=== PATIENT | male | born 1955 | race Caucasian/White ===

== ENCOUNTER 2019-03-19 09:16 | Outpatient (CLI) | payer BC, SELFPAY ==
--- NOTE | ~2019-03-19 | US_ITS ---
EXAMINATION: US venous doppler [facility] EXAM DATE: 03/19/2019 10:06 INDICATION: DVT follow-up. On blood thinners. TECHNIQUE: Multiple grayscale, color flow and Doppler images of the left lower extremity deep venous system obtained and reviewed. Comparison is made to prior examination from 07/17/2018. FINDINGS: LEFT SIDE Common femoral: -------- Normal. Profunda femoral: ------- Normal. Femoral: Occlusive thrombus. Popliteal: Nonocclusive thrombus. Posterior tibial: --------- Normal. Peroneal: Normal. Gastrocnemius: Nonocclusive thrombus. Soleus: Not visualized. Greater saphenous: ----- Normal. Lesser saphenous: ------ Not visualized. IMPRESSION: 1. Persistent left lower extremity DVT. Reviewed, dictated and finalized at location A. [facility]
== END 2019-03-19 09:17 | disposition home or self-care (01) ==
PROVIDERS: PCP Family Medicine; Visit Provider Physician Assistant
DX: I82.509 Chronic embolism and thrombosis of unspecified deep veins of unspecified lower extremity (principal)
CPT/HCPCS: 93971

== ENCOUNTER 2019-07-18 08:00 | Outpatient (CLI) | payer BC, SELFPAY ==
--- NOTE | ~2019-07-18 | XR_ITS ---
EXAMINATION: XR knee LT 3V DATE: 07/18/2019 08:25 INDICATION: Left knee pain. TECHNIQUE: 3 views of left knee were obtained. COMPARISON: None. FINDINGS: Bone alignment is normal. No fracture. There is moderate osteoarthritis of medial compartme nt and mild osteoarthritis of lateral and patellofemoral compartments. No knee joint effusion. A 7 mm focus of ossification posterior to the knee may be a loose body in a Hamilton's cyst. IMPRESSION: 1. Moderate left knee osteoarthritis. 2. Ossification posterior to the knee, likely a loose body in a Hamilton's cyst. Reviewed, dictated and finalized at location A.
--- NOTE | ~2019-07-18 | XR_ITS ---
EXAMINATION: XR knee RT 3V DATE: 07/18/2019 08:26 INDICATION: Right knee pain. TECHNIQUE: 3 views of right knee were obtained. COMPARISON: None. FINDINGS: Bone alignment is normal. No fracture. There is moderate osteoarthritis of medial compartme nt and mild osteoarthritis of lateral and patellofemoral compartments. No knee joint effusion. IMPRESSION: 1. Moderate right knee osteoarthritis. Reviewed, dictated and finalized at location A.
== END 2019-07-18 08:01 | disposition home or self-care (01) ==
PROVIDERS: PCP Family Medicine; Visit Provider Physician Assistant
DX: M25.561 Pain in right knee (principal); M25.562 Pain in left knee; M17.0 Bilateral primary osteoarthritis of knee
CPT/HCPCS: 73562

== ENCOUNTER 2019-07-24 11:32 | Outpatient (CLI) | payer BC, SELFPAY ==
--- NOTE | ~2019-07-24 | US_ITS ---
EXAMINATION:US venous doppler LE BI INDICATION:Right leg swelling. History of left lower extremity DVT. Patient on blood thinners. TECHNIQUE: Multiple grayscale, color flow and Doppler images of the lower extremity deep venous syste ms were obtained and reviewed. COMPARISON:No prior studies for comparison. FINDINGS: The right common femoral, superficial femoral and popliteal veins demonstrate normal respir atory variation, augmentation and compressibility. Color flow is also seen within the posterior tibi al, peroneal, greater saphenous and profunda veins. There is persistent deep venous thrombosis in the left femoral and popliteal veins, with associated reflux. The posterior tibial and peroneal veins on the left are not well visualized. IMPRESSION: 1: Persistent deep venous thrombosis of the left femoral and popliteal veins. Reviewed, dictated and finalized at location A.
== END 2019-07-24 11:33 | disposition home or self-care (01) ==
LOC: ANHIMG 11:34
PROVIDERS: PCP Family Medicine; Visit Provider Physician Assistant
DX: M79.604 Pain in right leg (principal); I82.412 Acute embolism and thrombosis of left femoral vein; I82.422 Acute embolism and thrombosis of left iliac vein
CPT/HCPCS: 93970

== ENCOUNTER 2019-11-09 16:57 | Emergency (ER) | payer BC, SELFPAY ==
--- NOTE | ~2019-11-09 | XR_ITS ---
EXAMINATION: XR foot RT min 3V DATE: 11/09/2019 18:14 INDICATION: Right foot pain, initial encounter TECHNIQUE: Dorsoplantar, lateral, and 2 oblique views of the right foot were obtained. COMPARISON: None. FINDINGS: There is an acute, traumatic fracture in the proximal half of the fifth proximal phalanx wh ich extends to the metatarsophalangeal joint. Soft tissue swelling surrounds the fracture. No additio nal acute osseous findings are evident. There is mild polyarticular osteoarthritis. IMPRESSION: 1. Acute fracture of the fifth proximal phalanx extending to the metatarsophalangeal joint. Reviewed, dictated and finalized at location A. IMPRESSION: 1. Acute fracture of the fifth proximal phalanx extending to the metatarsophala ngeal joint.
[2019-11-09 17:07] VITALS: BP 149/85; PULSE 79; RESP 18; TEMP 36.8; O2SAT 98
--- NOTE | 2019-11-09 18:06 | ED.WOUNDLAC ---
HPI - Wound/Laceration General Chief Complaint: Wound/Laceration Stated Complaint: feel off of a ladder, foot injury Time Seen by Provider: 11/09/19 17:12 Source: patient Mode of arrival: ambulatory Limitations: no limitations History of Present Illness HPI narrative: This is a 64-year-old male that presents to the emergency department for right fourth toe laceration sustained just prior to arrival. Reports he fell about 3 to 4 feet off of the ladder. Reports landing on his right side. He is unsure how he sustained the laceration. He is up-to-date on tetanus. He has no other complaints. Denies hitting his head, loss of consciousness, joint pain, numbness, or weakness. Related Data Allergies Allergy/AdvReac Type Severity Reaction Status Date / Time niacin Allergy Mild HIVES Verified 08/14/19 13:38 fish oil AdvReac Mild Nausea Verified 08/14/19 13:38 Review of Systems Review of Systems: Narrative: CONSTITUTIONAL: Denies fever EYES: Denies visual changes CARDIOVASCULAR: Denies chest pain RESPIRATORY: Denies dyspnea. GASTROINTESTINAL: Denies vomiting SKIN: Reports laceration MUSCULOSKELETAL: Denies back pain, joint pain, or myalgia. NEUROLOGIC: Denies headache, numbness, or weakness. All systems reviewed & are unremarkable except as noted in HPI and below PMFSH Past Medical History Medical History (Updated 11/09/19 @ 20:46 by Cammie Moon PA-C) Cellulitis of right lower extremity Edema of right lower extremity Hypertensive heart disease without CHF FILIPE (obstructive sleep apnea) Osteoarthritis of both knees Prediabetes Surgical History Surgical History (Updated 08/14/19 @ 13:39 by Ginger Dugan) History of elbow surgery Lt History of hernia surgery Family History Family History (Updated 08/14/19 @ 13:40 by Ginger Dugan) Mother Cancer of blood vessel Father No problems noted. Social History Social History (Updated 01/23/19 @ 10:41 by Myrtle Wilkins) Smoking packs per day: 2 Smoking cigarettes per day: 40.0 Years smoked: 22 Smoking pack-years: 44.00 Smoking status: Former smoker Tobacco type: cigarettes Second hand tobacco smoke exposure: No Alcohol intake: current Substance use: never Substance use type: does not use Gender identity (if verbalized by the patient): Male Exam Narrative: Exam Narrative: GENERAL: Well-appearing, well-nourished, and in no acute distress. HEAD: Normocephalic, atraumatic. EYES: PERRLA and EOMI. ENT: Nares clear, no rhinorrhea or epistaxis. Mucous membranes moist. Oropharynx without tonsillar hypertrophy exudate or other lesions. Bilateral TMs pearly rashid non-bulging NECK: Supple. No adenopathy or masses. No midline cervical spine tenderness CHEST: Clear to auscultation. No respiratory distress. No wheezes rales or rhonchi HEART: Regular rate and rhythm. No murmur heard. Normal peripheral pulses. BACK: No midline thoracic or lumbar spine tenderness EXTREMITIES: Normal range of motion, except decreased range of motion of the right fourth toe. No edema. SKIN: Warm, dry, no rash. 1.5cm linear laceration at the base of the right fourth toe into subcutaneous tissue NEURO: No focal deficits. Alert and oriented x3. PSYCH: Normal mood and affect Course Consultations Consultation #1: Spoke with Dr. Saldana about patient and work-up will follow-up in clinic. Date: 11/09/19 Time: 20:53 Vital Signs Vital signs: Vital Signs Temperature 98.3 F 11/09/19 17:07 Pulse Rate 79 11/09/19 17:07 Respiratory Rate 18 11/09/19 17:07 Blood Pressure 149/85 H 11/09/19 17:07 Pulse Oximetry 98 11/09/19 17:07 Temperature 98.3 F 11/09/19 17:07 Pulse Rate 79 11/09/19 17:07 Respiratory Rate 18 11/09/19 17:07 Blood Pressure 149/85 H 11/09/19 17:07 Pulse Oximetry 98 11/09/19 17:07 MDM - Wound/Laceration MDM Narrative Medical decision making narrative: Patient presents to the emergency department for right fourth
[2019-11-09 19:15] VITALS: BP 137/67; PULSE 81; RESP 18; O2SAT 100
[2019-11-09] MEDS: ceFAZolin SODIUM 1 GM VIAL IM (21:05)
--- NOTE | 2019-11-09 21:15 | PC.NURSE ---
Sterile water used for Ancef reconstitution.
[2019-11-09 21:21] VITALS: BP 140/76; PULSE 75; RESP 16; TEMP 36.7; O2SAT 100
== END 2019-11-09 21:25 | disposition home or self-care (01) ==
PROVIDERS: Emergency Provider Family Medicine; PCP Family Medicine
DX: S91.114A Laceration without foreign body of right lesser toe(s) without damage to nail, initial encounter (principal); S92.511A Displaced fracture of proximal phalanx of right lesser toe(s), initial encounter for closed fracture; G47.33 Obstructive sleep apnea (adult) (pediatric); I11.9 Hypertensive heart disease without heart failure; M17.0 Bilateral primary osteoarthritis of knee; R73.03 Prediabetes; Z87.891 Personal history of nicotine dependence; W11.XXXA Fall on and from ladder, initial encounter
CPT/HCPCS: 12001; 73630; 96372; 99284; J0690

== ENCOUNTER → 2020-04-24 01:17 | Outpatient (CLI) | payer BC, SELFPAY ==
[2020-04-24 18:54] LABS: SARS-CoV-2 RNA PCR Negative
== END ==
PROVIDERS: PCP Family Medicine; Visit Provider Internal Medicine Gastroenterology
DX: Z01.812 Encounter for preprocedural laboratory examination (principal); Z20.822 Contact with and (suspected) exposure to COVID-19
CPT/HCPCS: C9803; U0003; U0005

== ENCOUNTER 2020-04-27 01:08 | Day surgery (SDC) | payer BC, SELFPAY ==
[2020-04-13 15:22] VITALS: BMI 36.1
[2020-04-27 09:59] VITALS: BP 131/93; PULSE 78; RESP 16; TEMP 36.1; O2SAT 97; BMI 35.9
[2020-04-27] MEDS: LACTATED RINGERS 1,000 ML 150 ML IV CONT (10:01)
--- NOTE | 2020-04-27 10:41 | WPDANESEPPF ---
Anes - Initial Pre Proc Eval Procedure: Operation Date: 04/27/20 10:30 Proposed Procedures p Screening Colonoscopy - Alex Woodson MD Date/Time: 04/27/20 10:41 Surgeon: Alex Woodson MD Pre Op Diagnosis: Neoplasm Screening Patient Data Age: 64 Gender: M Height: 5 ft 8 in Weight: 107.1 kg Last Vital Signs Temp 96.9 F L 04/27/20 09:59 Pulse 78 04/27/20 09:59 Resp 16 04/27/20 09:59 BP 131/93 H 04/27/20 09:59 Pulse Ox 97 04/27/20 09:59 Allergies Allergy/AdvReac Type Severity Reaction Status Date / Time niacin Allergy Mild HIVES Verified 04/27/20 09:57 fish oil AdvReac Mild Nausea Verified 04/27/20 09:57 Home Medications Medication Instructions Recorded Confirmed Type atorvastatin 10 mg tablet 10 mg PO DAILY #90 tablet 11/26/19 04/27/20 Rx lisinopril 10 mg tablet 10 mg PO DAILY #90 tablet 03/04/20 04/27/20 Rx rivaroxaban 20 mg tablet 20 mg PO DAILY #90 tablet 03/04/20 04/27/20 Rx omeprazole 20 mg capsule,delayed 20 mg PO DAILY #90 cap 03/08/20 04/27/20 Rx release Patient hx anesthesia problems: none Family hx anesthesia problems: none PMFSH Past Medical History Medical History (Updated 03/08/20 @ 10:49 by Thais Rangel APN-C) Cellulitis of right lower extremity Edema of right lower extremity Hypertensive heart disease without CHF FILIPE (obstructive sleep apnea) Osteoarthritis of both knees Prediabetes Surgical History Surgical History (System 02/25/20 @ 09:54 by Emily Hollins) History of elbow surgery Lt History of hernia surgery Family History Family History (System 02/25/20 @ 09:54 by Emily Hollins) Mother Cancer of blood vessel Father No problems noted. Mother Family history of blood dyscrasia Grandparent Family history of heart disease in male family member before age 55 Social History Social History (Updated 03/04/20 @ 09:00 by Myrtle Wilkins) Smoking packs per day: 2 Smoking cigarettes per day: 40.0 Years smoked: 22 Smoking pack-years: 44.00 Smoking status: Never smoker Tobacco type: cigarettes Second hand tobacco smoke exposure: No Smoking end date: 02/12/91 Alcohol intake: never Substance use: never Substance use type: does not use Living arrangements: with family Gender identity (if verbalized by the patient): Male Spiritual care concerns: No Anes - Eval Final PreProcedure Day of Procedure 04/27/20 10:41 Patient weight: obese Heart: regular rate and rhythm Lungs: clear to auscultation Airway: Mallampati scale class III Neurological: alert and oriented Last oral intake: >/= 8 hours ASA classification: III Emergent: no Anesthetic plan: proceed Anesthesia type and monitoring: general GIVS and standard monitoring Informed Consent: The patient's anesthetic plan and its attendant risks and benefits were discussed with the patient/family/POA. Questions were solicited and answers provided to the satisfaction of the patient/family/POA.
--- NOTE | 2020-04-27 11:17 | PM.HPGS ---
History of Present Illness History of Present Illness Consent: Risks, benefits, and alternatives have been discussed and questions answered. Patient agrees to proceed with procedure. Chief complaint: Neoplasm Screening Narrative: Hans Cole is a 64 year old male with colon polyps 2017 Review of Systems Constitutional: Constitutional: Denies headache(s) and Denies weakness Eyes: Eyes: Denies blurry vision ENT: Reports Normal hearing present, Denies headache(s) and Denies neck pain Cardiovascular: Cardiovascular: Denies chest pain and Denies dyspnea Respiratory: Respiratory: Denies dyspnea Gastrointestinal: Gastrointestinal: Reports no additional gastrointestinal complaints Genitourinary: Genitourinary: Denies dysuria Musculoskeletal: Musculoskeletal: Denies neck pain Integumentary/Breasts: Skin/Breast: Denies dry skin Neurologic: Reports Normal hearing present, Denies headache(s) and Denies weakness Psychiatric: Psychiatric: Denies anxiety Endocrine: Endocrine: Denies change in body appearance Hematologic/Lymphatic: Hematologic/Lymphatic: Denies easy bleeding Allergic/Immunologic: Allergic/Immunologic: Denies urticaria PMFSH Past Medical History Medical History (Updated 04/27/20 @ 11:17 by Alex Woodson MD) Adenomatous colon polyp Cellulitis of right lower extremity Edema of right lower extremity Hypertensive heart disease without CHF FILIPE (obstructive sleep apnea) Osteoarthritis of both knees Prediabetes Surgical History Surgical History (System 02/25/20 @ 09:54 by Emily Hollins) History of elbow surgery Lt History of hernia surgery Family History Family History (System 02/25/20 @ 09:54 by Emily Hollins) Mother Cancer of blood vessel Father No problems noted. Mother Family history of blood dyscrasia Grandparent Family history of heart disease in male family member before age 55 Social History Social History (Updated 03/04/20 @ 09:00 by Myrtle Wilkins) Smoking packs per day: 2 Smoking cigarettes per day: 40.0 Years smoked: 22 Smoking pack-years: 44.00 Smoking status: Never smoker Tobacco type: cigarettes Second hand tobacco smoke exposure: No Smoking end date: 02/12/91 Alcohol intake: never Substance use: never Substance use type: does not use Living arrangements: with family Gender identity (if verbalized by the patient): Male Spiritual care concerns: No Meds Home Medications and Allergies Home Medications Medication Instructions Recorded Confirmed Type atorvastatin 10 mg tablet 10 mg PO DAILY #90 tablet 11/26/19 04/27/20 Rx lisinopril 10 mg tablet 10 mg PO DAILY #90 tablet 03/04/20 04/27/20 Rx rivaroxaban 20 mg tablet 20 mg PO DAILY #90 tablet 03/04/20 04/27/20 Rx omeprazole 20 mg capsule,delayed 20 mg PO DAILY #90 cap 03/08/20 04/27/20 Rx release Allergies Allergy/AdvReac Type Severity Reaction Status Date / Time niacin Allergy Mild HIVES Verified 04/27/20 09:57 fish oil AdvReac Mild Nausea Verified 04/27/20 09:57 Vital Signs Vital Signs - 24 hr 04/27/20 09:59 Temperature 96.9 F L Pulse Rate 78 Respiratory Rate 16 Blood Pressure 131/93 H Pulse Oximetry 97 Exam Const: General: comfortable and no acute distress HENMT: General nose exam: Normal nares present Eyes: General: appearance normal, both eyes and all related structures Neck: Neck: no JVD Resp: Auscultation: clear to auscultation bilaterally Cardio: Rate: regular rate Rhythm: regular rhythm GI: Inspection: non-distended GI Palp: Yes Soft to palpation Skin: General skin exam: normal color Neuro: General: gait normal Speech: normal speech Extrem: General: normal to inspection Psych: Mental Status: mental status grossly normal Assessment and Plan Assessment and plan (1) Adenomatous colon polyp: Code(s): D12.6 - Benign neoplasm of colon, unspecified Status: Acute Asse
[2020-04-27] MEDS: CENTRAL LINE FLUSH 10 ML XX (11:39)
[2020-04-27 11:43] VITALS: BP 120/71; PULSE 68; RESP 20; O2SAT 99
[2020-04-27 11:53] VITALS: BP 130/81; PULSE 66; RESP 18; O2SAT 98
[2020-04-27 12:03] VITALS: BP 127/83; PULSE 60; RESP 18; O2SAT 99
== END 2020-04-27 12:14 | disposition home or self-care (01) ==
PROVIDERS: PCP Family Medicine; Visit Provider Internal Medicine Gastroenterology
PROC: 0DJD8ZZ Inspection of Lower Intestinal Tract, Via Natural or Artificial Opening Endoscopic (ICD-10-PCS; CPT 45378; principal; 2020-04-27 10:30)
DX: Z12.11 Encounter for screening for malignant neoplasm of colon (principal); D12.0 Benign neoplasm of cecum; D12.3 Benign neoplasm of transverse colon; K63.5 Polyp of colon; K57.30 Diverticulosis of large intestine without perforation or abscess without bleeding; K64.4 Residual hemorrhoidal skin tags; I11.9 Hypertensive heart disease without heart failure; R73.03 Prediabetes; G47.33 Obstructive sleep apnea (adult) (pediatric); Z79.01 Long term (current) use of anticoagulants; Z87.891 Personal history of nicotine dependence; E66.9 Obesity, unspecified; Z68.35 Body mass index [BMI] 35.0-35.9, adult
CPT/HCPCS: 45381; 45385; 88305; J2001; J2704; J7120

== ENCOUNTER 2022-05-08 15:09 | Outpatient (CLI) | payer OTHER, SELFPAY ==
--- NOTE | ~2022-05-08 | XR_ITS ---
XR foot LT 2V DATE: 05/08/2022 15:26 INDICATION: Left foot pain. No injury. TECHNIQUE: 4 views COMPARISON: None FINDINGS: Mild plantar calcaneal enthesopathy. Old healed fracture of the proximal phalanx of the fifth toe. No recent fracture or dislocation, periosteal reaction or bone destruction. IMPRESSION: Mild plantar calcaneal enthesopathy Reviewed, dictated and finalized at location B.
== END 2022-05-08 15:10 | disposition home or self-care (01) ==
LOC: ANHIMG 15:13
PROVIDERS: PCP Family Medicine; Visit Provider Family Medicine
DX: M79.672 Pain in left foot (principal); M77.32 Calcaneal spur, left foot
CPT/HCPCS: 73620

== ENCOUNTER 2022-06-23 07:20 | Outpatient (CLI) | payer OTHER, SELFPAY ==
--- NOTE | ~2022-06-23 | US_ITS ---
Ultrasound of the Abdominal Aorta INDICATION: Smoking history, abdominal aortic aneurysm TECHNIQUE: Grayscale, color Doppler, and pulsed Doppler images of the aorta and common iliac arteries were obtained. COMPARISON: None. FINDINGS: Maximum vascular dimensions are as follows: Proximal aorta: 2.9 cm Mid aorta: 2.4 cm Distal aorta: 2.2 cm Right common iliac artery: 0.9 cm Left common iliac artery: 1.0 cm There is no evidence of abdominal aortic aneurysm. IMPRESSION: No abdominal aortic aneurysm seen. Reviewed, dictated and finalized at location M.
== END 2022-06-23 07:21 | disposition home or self-care (01) ==
PROVIDERS: PCP Family Medicine; Visit Provider Physician Assistant
DX: I71.40 Abdominal aortic aneurysm, without rupture, unspecified (principal); Z87.891 Personal history of nicotine dependence
CPT/HCPCS: 76706

== ENCOUNTER 2023-07-23 00:36 | Day surgery (SDC) | payer OTHER, SELFPAY ==
[2023-07-11 12:39] VITALS: BMI 33.7
--- NOTE | 2023-07-11 13:02 | PC.NURSE ---
Spoke with _PATIENT_ regarding medication _XARELTO. Pt. verbalizes understanding that the last dose of XARELTO is to be taken on 07/20/2023 and the Endoscopist will instruct them when to restart after the procedure.
[2023-07-23 06:18] VITALS: BP 142/95; PULSE 64; RESP 18; TEMP 36.1; O2SAT 100; BMI 34.7
[2023-07-23] MEDS: LACTATED RINGERS 1,000 ML 150 ML IV CONT (06:50)
--- NOTE | 2023-07-23 07:20 | WPDANESEPPF ---
Anes - Initial Pre Proc Eval Procedure: Operation Date: 07/23/23 07:30 Proposed Procedures p Colonoscopy - Alex Woodson MD Date/Time: 07/23/23 07:20 Surgeon: Alex Woodson MD Pre Op Diagnosis: Personal history colon polyps Patient Data Age: 67 Gender: M Height: 1.7 m Weight: 100.7 kg Last Vital Signs Temp 96.9 F L 07/23/23 06:18 Pulse 64 07/23/23 06:18 Resp 18 07/23/23 06:18 BP 142/95 H 07/23/23 06:18 Pulse Ox 100 07/23/23 06:18 O2 Del Method Room Air 07/23/23 06:18 Allergies Allergy/AdvReac Type Severity Reaction Status Date / Time niacin Allergy Mild HIVES Verified 07/23/23 06:27 fish oil AdvReac Mild Nausea Verified 07/23/23 06:27 Home Medications Medication Instructions Recorded Confirmed Type atorvastatin 10 mg tablet See Rx Instructions .Route 11/02/22 07/23/23 Rx .COMPLEX #90 tabs rivaroxaban 20 mg tablet (Xarelto) 20 mg PO DAILY #90 tabs 01/08/23 07/23/23 Rx omeprazole 20 mg capsule,delayed 20 mg PO DAILY #90 caps 02/06/23 07/23/23 Rx release lisinopril 10 mg tablet 10 mg PO DAILY #90 tabs 03/19/23 07/23/23 Rx Patient hx anesthesia problems: none Family hx anesthesia problems: none Results Review: All pre-operative results and documents have been reviewed as part of the pre-operative evaluation. [facility] Past Medical History Medical History Adenomatous colon polyp Cellulitis of right lower extremity Edema of right lower extremity Hypertensive heart disease without CHF FILIPE (obstructive sleep apnea) Osteoarthritis of both knees Prediabetes Surgical History Surgical History History of elbow surgery Lt History of hernia surgery Family History Family History Mother Cancer of blood vessel Father No problems noted. Mother Family history of blood dyscrasia Grandparent Family history of heart disease in male family member before age 55 Social History Social History Smoking packs per day: 2 Smoking cigarettes per day: 40.0 Years smoked: 22 Smoking pack-years: 44.00 Smoking status: Former smoker Tobacco type: cigarettes Second hand tobacco smoke exposure: No Smoking end date: 02/12/91 Alcohol intake: current Alcohol use details: occasionally Substance use: never Substance use type: does not use Living arrangements: with family Occupation/Education: occupation Gender identity (if verbalized by the patient): Male Sexual Orientation (if Verbalized by the Patient): Straight or Heterosexual Spiritual care concerns: No Anes - Eval Final PreProcedure Day of Procedure 07/23/23 07:20 Patient weight: normal Heart: regular rate and rhythm Lungs: clear to auscultation Airway: Mallampati scale class II Neurological: alert and oriented Last oral intake: >/= 8 hours ASA classification: III Emergent: no Anesthetic plan: proceed Anesthesia type and monitoring: general GIVS and standard monitoring Results Review: All pre-operative results and documents have been reviewed as part of the pre-operative evaluation. Informed Consent: The patient's anesthetic plan and its attendant risks and benefits were discussed with the patient/family/POA. Questions were solicited and answers provided to the satisfaction of the patient/family/POA.
--- NOTE | 2023-07-23 07:24 | PM.HPGS ---
History of Present Illness History of Present Illness Consent: Risks, benefits, and alternatives have been discussed and questions answered. Patient agrees to proceed with procedure. Chief complaint: Personal history colon polyps Narrative: Hans Cole is a 67 year old male with history of colon polyp Review of Systems Review of Systems: All systems reviewed & are unremarkable except as noted in HPI and below PMFSH Past Medical History Medical History Adenomatous colon polyp Cellulitis of right lower extremity Edema of right lower extremity Hypertensive heart disease without CHF FILIPE (obstructive sleep apnea) Osteoarthritis of both knees Prediabetes Surgical History Surgical History History of elbow surgery Lt History of hernia surgery Family History Family History Mother Cancer of blood vessel Father No problems noted. Mother Family history of blood dyscrasia Grandparent Family history of heart disease in male family member before age 55 Social History Social History Smoking packs per day: 2 Smoking cigarettes per day: 40.0 Years smoked: 22 Smoking pack-years: 44.00 Smoking status: Former smoker Tobacco type: cigarettes Second hand tobacco smoke exposure: No Smoking end date: 02/12/91 Alcohol intake: current Alcohol use details: occasionally Substance use: never Substance use type: does not use Living arrangements: with family Occupation/Education: occupation Gender identity (if verbalized by the patient): Male Sexual Orientation (if Verbalized by the Patient): Straight or Heterosexual Spiritual care concerns: No Meds Home Medications and Allergies Home Medications Medication Instructions Recorded Confirmed Type atorvastatin 10 mg tablet See Rx Instructions .Route 11/02/22 07/23/23 Rx .COMPLEX #90 tabs rivaroxaban 20 mg tablet (Xarelto) 20 mg PO DAILY #90 tabs 01/08/23 07/23/23 Rx omeprazole 20 mg capsule,delayed 20 mg PO DAILY #90 caps 02/06/23 07/23/23 Rx release lisinopril 10 mg tablet 10 mg PO DAILY #90 tabs 03/19/23 07/23/23 Rx Allergies Allergy/AdvReac Type Severity Reaction Status Date / Time niacin Allergy Mild HIVES Verified 07/23/23 06:27 fish oil AdvReac Mild Nausea Verified 07/23/23 06:27 Vital Signs Vital Signs - 24 hr 07/23/23 06:18 Temperature 96.9 F L Pulse Rate 64 Respiratory Rate 18 Blood Pressure 142/95 H Pulse Oximetry 100 Oxygen Delivery Room Air Exam Const: General: comfortable and no acute distress HENMT: Face/Nose/Sinus: Normal nares present Eyes: General: appearance normal, both eyes and all related structures Neck: Neck: no JVD Resp: Auscultation: clear to auscultation bilaterally Cardio: Rate: regular rate Rhythm: regular rhythm GI: Inspection: non-distended GI Palp: Yes Soft to palpation Skin: General skin exam: normal color Neuro: General: gait normal Speech: normal speech Extrem: General: normal to inspection Psych: Mental Status: mental status grossly normal Assessment and Plan Assessment and plan (1) Adenomatous colon polyp: Code(s): D12.6 - Benign neoplasm of colon, unspecified Status: Acute Assessment and Plan: colonoscopy
[2023-07-23 07:46] VITALS: BP 121/79; PULSE 61; RESP 18; O2SAT 99
[2023-07-23 07:56] VITALS: BP 123/76; PULSE 60; RESP 20; O2SAT 100
[2023-07-23 08:06] VITALS: BP 131/85; PULSE 57; RESP 16; O2SAT 100
== END 2023-07-23 08:13 | disposition home or self-care (01) ==
PROVIDERS: PCP Family Medicine; Visit Provider Internal Medicine Gastroenterology
PROC: 0DJD8ZZ Inspection of Lower Intestinal Tract, Via Natural or Artificial Opening Endoscopic (ICD-10-PCS; CPT 45378; principal; 2023-07-23 07:30)
DX: Z12.11 Encounter for screening for malignant neoplasm of colon (principal); D12.0 Benign neoplasm of cecum; D12.3 Benign neoplasm of transverse colon; K57.30 Diverticulosis of large intestine without perforation or abscess without bleeding; I11.9 Hypertensive heart disease without heart failure; G47.33 Obstructive sleep apnea (adult) (pediatric); Z79.01 Long term (current) use of anticoagulants; Z87.891 Personal history of nicotine dependence
CPT/HCPCS: 45385; 88305; J2704; J7120

== ENCOUNTER 2024-06-12 06:45 | Outpatient (CLI) | payer OTHER, SELFPAY ==
--- OUTSIDE RECORDS SUMMARY | 2024-06-12 06:52 | XMS_ITS | Clinical Summary ---
Author Organization [facility] [employer] Address [address] [place] [address] Care Team Providers Care Rail Gang Supervisor Name Role Phone Arturo Burns MD Primary Care Provider [phone] Source Comments [facility],non-owned Affiliates and Associated Physician Practices is amultiple site organization consisting of ambulatory clinics and hospital sitesin [place], [place] and [place]. This disclosure is being madepursuant to the Care Everywhere program and may not contain all information available regarding this patient. Last updated 17.[facility] [employer] Allergies Active Allergy Reactions Criticality Noted Date Comments Fish Oil Nausea and/or Vomiting 06/25/2017 Niacin Rash Medium 06/25/2017 Medications * Be aware that medications may not be up to date on this document. Alwaysverify current medications with the patient. lisinopril (PRINIVIL; ZESTRIL) 10 MG tablet Take 10 mg by mouth once daily Active rivaroxaban (XARELTO) 20 MG tablet Take 20 mg by mouth daily with food Active atorvastatin (LIPITOR) 10 MG tablet Take 10 mg by mouth at bedtime Active Active Problems Problem Noted Date Diagnosed Date Dizziness 06/25/2017 Social History Tobacco Use Types Packs/Day Years Used Date Smoking Tobacco: Former Cigarettes Q uit: 1991 Smokeless Tobacco: Never Alcohol Use Standard Drinks/Week Comments Yes 0 (1 standard drink = 0.6 oz pur e alcohol) Sex and Gender Information Value Date Recorded Sex Assigned at Not on file 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 Gender Identity Not on file Sexual Orientation Not on file Last Filed Vital Signs Vital Sign Reading Time Taken Comments Blood Pressure 118/78 06/26/2017 7:38 AM CDT Pulse 85 06/26/2017 7:38 AM CDT Temperature 37.6 C (99.7 F) 06/26/2017 7:38 AM CDT Respiratory Rate 18 06/26/2017 7:38 AM CDT Oxygen Saturation 94% 06/26/2017 7:38 AM CDT Inhaled Oxygen Concentration - - Weight 117 kg (257 lb 15 oz) 06/25/2017 1:46 AM CDT Height 170.2 cm (5' 7 ) 06/25/2017 1:46 AM CDT Body Mass Index 40.4 06/25/2017 1:46 AM CDT Plan of Treatment Health Maintenance Due Date Last Done Comments COLOGUARD (AGES 45-75) - COL ON CA SCREENING 1953 COLON MONITORING 1953 COLONOSCOPY - COLON CA SCREENING 1953 CT COLONOGRAPHY - COLON CA SCREENING 1953 Colorectal Cancer Screening 1953 FIT - COLON CA SCREENING 1953 FLEX SIG - COLON CA SCREENING 1953 MEDICARE AWV 12 MONTHS 1953 HEPATITIS C SCREENING 09/19/1971 DTAP/TDAP/TD VACCINES (1 - Tdap) 1972 PNEUMOCOCCAL VACCINE 50+ (1 of 1 - PCV) 09/24/2003 ZOSTER VACCINE (1 of 2) 09/24/2003 Respiratory Syncytial Virus (RSV) Vaccine Pt: or over 60 yrs (1 - Risk 60-74 years 1-dose series) 2013 AAA SCREENING 2018 COVID-19 VACCINE (1 - 2023-2 5 season) 2023 DEPRESSION SCREENING 02/13/2024 INFLUENZA VACCINE (Season Ended) 2024 HEPATITIS B VACCINE Aged Out No longe r eligible based on patient's age to complete this topic HIB VACCINE Aged Out No longer eligi ble based on patient's age to complete this topic HPV VACCINE Aged Out No longer eligi ble based on patient's age to complete this topic MENINGOCOCCAL (Group B) VACC INE SHARED DECISION-MAKING Aged Out No longer eligibl e based on patient's age to complete this topic MENINGOCOCCAL GROUPS A/C/Y/W VACCINE Aged Out No longer eligible b ased on patient's age to complete this topic Insurance [employer] * Guarantor: PATT SCHNEIDER Account Type Relation to Patient Date of Phone Billing Address Personal/Family [address] [place] [address] [employer] * Guarantor: PATT SCHNEIDER Account Type Relation to Patient Date of Phone Billing Address Personal/Family [address] [place] [address] * Guarantor: PATT SCHNEIDER Account Type Relation to Patient Date of Phone Billing Address Personal/Family [address] [place] [address] Advance Directives * Full Code (Latest Code Status on File) Date Activated Date Inactivated Comments 06/25/2017 5:41 PM 06/26/2017 12:49 PM Care Teams Rail Gang Supervisor Relationship Specialty Start Date End Date Arturo Burns MD [address] [place] [address] PCP - General Family Medicine 06/25/17
--- NOTE | 2024-06-12 08:20 | ECG_ITS ---
Test Date: 2024-06-12 08:33:46 Measurements Intervals [place] Rate: 67 P: 23 DC: 148 QRS: -14 QRSD: 93 T: 1 QT: 371 QTc: 393 Interpretive Statements SINUS RHYTHM NONSPECIFIC T-WAVE ABNORMALITY No previous ECG available for comparison Electronically Signed On 06-13-2024 18:57:38 CDT by Harsh Briones
[2024-06-12 08:42] LABS: Basophils Absolute Auto 0.1 K/mm3 (0.0-0.1); Basophils Percent Auto 1.1 % (0.2-1.2); Eosinophils Absolute Auto 0.4 K/mm3 (0-0.3); Eosinophils Percent Auto 5.3 % (0-4.4); Hematocrit 46.6 % (42.0-52.0); Hemoglobin 14.3 g/dL (14.0-18.0); Immature Granulocyte Absolute 0.02 K/mm3 (0.00-0.031); Immature Granulocyte Percent A 0.2 % (0-0.5); Lymphocytes Absolute Auto 1.39 K/mm3 (0.9-3.2); Mean Corpuscular HGB Conc 30.7 g/dl (32-36); Mean Corpuscular Hemoglobin 29.9 pg (26-34); Mean Corpuscular Volume 97.3 fl (80-100); Mean Platelet Volume 8.6 fl (7.4-10.4); Monocytes Absolute Auto 0.6 K/mm3 (0.1-0.6); Monocytes Percent Auto 7.6 % (2.6-8.5); Neutrophils Absolute Auto 5.6 K/mm3 (1.3-6.7); Neutrophils Percent Auto 68.8 % (45.5-73.1); Platelet Count Result 363 k/mm3 (150-375); Red Blood Count 4.79 M/mm3 (4.6-6.20); White Blood Count 8.2 K/mm3 (4.5-10.0)
[2024-06-12 08:51] LABS: Albumin Level 4.2 g/dL (3.5-5.1); Estimated Glomerular Filt Rate > 60; Glucose 120 mg/dL (65-110)
[2024-06-12 09:05] LABS: Urine Cotinine NEGATIVE
[2024-06-12 09:39] LABS: Hemoglobin A1C 5.6 % (<5.7)
[2024-06-12 09:54] LABS: MRSA (PCR) NOT DETECTED (NOT DETECTE)
== END 2024-06-12 06:46 | disposition home or self-care (01) ==
LOC: ANHSURGERY 06:50
PROVIDERS: PCP Family Medicine; Visit Provider Orthopaedic Surgery
DX: Z01.818 Encounter for other preprocedural examination (principal); M17.12 Unilateral primary osteoarthritis, left knee; R94.31 Abnormal electrocardiogram [ECG] [EKG]
CPT/HCPCS: 80307; 82040; 82565; 82947; 83036; 85025; 86850; 86900; 86901; 87641; 93005

== ENCOUNTER 2024-06-23 00:32 | Day surgery (SDC) | payer OTHER, SELFPAY ==
[2024-06-12 07:43] VITALS: BP 151/83; PULSE 68; RESP 16; TEMP 36.7; O2SAT 100; BMI 36.7
--- NOTE | 2024-06-12 07:50 | PC.NURSE ---
Report to the Outpatient Waiting Room, entrance under the green pavilion located off [facility], at time ___6:00AM____ on date ____06/23/24___. Planned Procedure Time: ____7:30AM____.? Time changes happen often and if your time is changed the preop area will call you the afternoon before. - You and your visitor will be asked to self-screen and do not enter if you have any COVID symptoms. Please call surgeon if you need to reschedule. - A mask is optional within the hospital at this time. Patients may have clear liquids (water, carbonated beverages, clear teas, apple juice) until 3 hours prior to surgery (4:30AM) with a maximum of 20 ounces. - No food from midnight until time of surgery and no smoking, or chewing tobacco (or any form of nicotine). No chewing gum, candy or mints. Take only the following medications with a SIP of water on the morning of surgery: NONE DO NOT STOP ANY OF YOUR OTHER PRESCRIPTION MEDICATIONS PRIOR TO SURGERY EXCEPT THE FOLLOWING Hold all vitamins and supplements for 3 days per anesthesiologist. Medications to discontinue per physician ____HOLD XERALTO 3 DAYS PRE-OP PER DR HERBERT Date to take last dose 06/19/24 Please no make-up, nail congolese, hairspray, perfume, deodorant, or body powder the day of surgery.? No jewelry (including any body piercings) or valuables the day of surgery, leave them at home.? Please take a shower or bath the night before, or the morning of, surgery with an antibacterial soap.? Wear comfortable, loose fitting clothing.? - Jewelry must be removed prior to entering the operating room.? Rings and piercings that are not removed may be cut off. - The hospital will not accept responsibility for valuables.? - Please leave all valuables, including medications, at home the day of surgery. If you are going home after surgery, a licensed otr owner operator truck driver must drive you home.? - NO public transportation without another adult if you receive anesthesia. - We recommend that an adult stay with you for 24 hours following discharge. - We also recommend that you do not drive, make important decision, drink alcoholic beverages, or take any drugs that were not prescribed by your health care provider for at least 24 hours after your discharge time. Follow any additional instructions given to you from your surgeon. Telephone instructions given to ____PATIENT and asked if any additional questions and then verbalized understanding. Patient advised to call surgeon office or pre surgery nurse liaison [phone] if any additional questions.
--- NOTE | 2024-06-19 07:12 | PM.IMHP ---
H&P: HPI History of Present Illness Date/Time: 06/19/24 07:12 Chief Complaint: Patient has knee pain left. He has significant osteoarthritis. He has failed conservative treatment. He would like to consider surgical intervention at this time. Review of Systems Musculoskeletal: Musculoskeletal: Reports arthralgias, Reports joint swelling and Reports stiffness Neurologic: Reports abnormal gait [facility] Past Medical History Medical History Adenomatous colon polyp Osteoarthritis of both knees Cellulitis of right lower extremity Edema of right lower extremity Hypertensive heart disease without CHF FILIPE (obstructive sleep apnea) Prediabetes Surgical History Surgical History History of elbow surgery Lt History of hernia surgery Family History Family History Mother Cancer of blood vessel Father No problems noted. Mother Family history of blood dyscrasia Grandparent Family history of heart disease in male family member before age 55 Social History Social History Smoking packs per day: 1 Smoking cigarettes per day: 20.0 Years smoked: 19 Smoking pack-years: 19.00 Smoking status: Former smoker Tobacco type: cigarettes Second hand tobacco smoke exposure: No Smoking end date: 08/12/90 Alcohol intake: current Alcohol use details: occasionally Substance use: never Substance use type: does not use Do You Feel Safe in your Home?: Yes Lack of Transportation: No Lack of Food: Never True Current Housing: I Have Housing Concerned About Future Housing: No Difficulty Paying Gas/Electric Bills: No Difficulty Paying for Meds: No Currently Unemployed: No Education: High School Diploma/GED Difficulty w/ Childcare or Family Care: No Living arrangements: with family Additional living arrangements comments: Occupation/Education: occupation Gender identity (if verbalized by the patient): Male Sexual Orientation (if Verbalized by the Patient): Straight or Heterosexual Spiritual care concerns: No Meds Home Medications and Allergies Home Medications ?Medication ?Instructions ?Recorded ?Confirmed ?Type omeprazole 20 mg capsule,delayed 20 mg PO DAILY #90 caps 10/31/23 06/12/24 Rx release lisinopril 10 mg tablet 10 mg PO DAILY #90 tabs 12/09/23 06/12/24 Rx atorvastatin 10 mg tablet See Rx Instructions .Route 05/06/24 06/12/24 Rx .COMPLEX #90 tabs rivaroxaban 20 mg tablet (Xarelto) See Rx Instructions .Route 06/09/24 06/12/24 Rx .COMPLEX #90 tabs Allergies Allergy/AdvReac Type Severity Reaction Status Date / Time niacin Allergy Mild HIVES Verified 06/12/24 07:41 fish oil AdvReac Mild Nausea Verified 06/12/24 07:41 Exam Narrative: On exam he has motion of his knee from about 5-105 degrees. He has varus deformity. He has grinding crepitus and pain with manipulation. Neurologically appears to be grossly intact. He walks with an antalgic gait. Eyes: General: appearance normal, both eyes and all related structures Neck: Neck: supple Resp: Effort & Inspection: normal respiratory effort Cardio: Rate: regular rate Rhythm: regular rhythm Assessment and Plan Assessment and plan (1) Osteoarthritis of both knees: Code(s): M17.0 - Bilateral primary osteoarthritis of knee Status: Acute Assessment and Plan: Patient has osteoarthritis left knee. He has failed conservative treatment like to consider knee replacement surgery I discussed risks, benefits, limitations, and alternatives with the patient in detail. Will proceed per his request he understands and agrees.
[2024-06-23] VITALS (14 sets, daily range): BP systolic 95–148; BP diastolic 57–84; PULSE 61–79; RESP 10–18; TEMP 36.2–37.1; O2SAT 92–100
--- NOTE | ~2024-06-23 | XR_ITS ---
EXAMINATION: [id number] DATE: 06/23/2024 09:50 INDICATION: Postoperative evaluation following left total knee arthroplasty. TECHNIQUE: Anteroposterior and lateral views of the left knee were obtained. COMPARISON: None. FINDINGS: Left total knee arthroplasty with patellar resurfacing appears well seated and in near anatomic align ment. There is suggestion of some extravasated cement at the posterolateral margin of the tibial comp onent. No fractures identified. Skin laura and expected postoperative subcutaneous, intramedullary and intra-articular gas. IMPRESSION: 1. Left total knee arthroplasty, negative for postoperative purposes. Reviewed, dictated and finalized at location A.
--- OUTSIDE RECORDS SUMMARY | 2024-06-23 00:34 | XMS_ITS | Clinical Summary ---
Author Organization [facility] [employer] Address [address] [place] [address] Care Team Providers Care Blood Bank Order Control Clerk Name Role Phone Arturo Burns MD Primary Care Provider [phone] Source Comments [facility],non-owned Affiliates and Associated Physician Practices is amultiple site organization consisting of ambulatory clinics and hospital sitesin [place], [place], [place] and [place]. This disclosure is being madepursuant to the Care Everywhere program and may not contain all information available regarding this patient. 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 Gender Identity Not on file Sexual Orientation [...] Billing Address Personal/Family [address] [place] [address] [employer] * Guarantor: PATT SCHNEIDER Account Type Relation to Patient Date of Phone Billing Address Personal/Family [address] [place] [address] * Guarantor: PATT SCHNEIDER Account Type Relation to Patient Date of Phone Billing Address Personal/Family [address] [place] [address] Advance Directives * Full Code (Latest Code Status on File) Date Activated Date Inactivated Comments 06/25/2017 5:41 PM 06/26/2017 12:49 PM Care Teams Blood Bank Order Control Clerk Relationship Specialty Start Date End Date Arturo Burns MD [address] [place] [address] PCP - General Family Medicine 06/25/17
--- NOTE | 2024-06-23 06:53 | WPDHPUPDATE1 ---
History and Physical Update Update Date/Time: 06/23/24 06:53 History and Physical has been reviewed, including an updated exam of the patient. There are NO changes in the patient's condition. Risks, benefits, and alternatives have been discussed and questions answered. Patient agrees to proceed with procedure.
[2024-06-23] MEDS: VANCOMYCIN 1,500 MG/NS 500 ML 1,500 MG/500 ML BAG 250 MG IVPB (07:00)
[2024-06-23] MEDS: ACETAMINOPHEN 500 MG TABLET 1000 MG PO (07:00)
[2024-06-23] MEDS: LACTATED RINGERS 1,000 ML 30 ML IV CONT ×2 (07:00→09:35)
[2024-06-23] MEDS: TRANEXAMIC ACID 1,000MG/ISO100 1,000 MG/100 ML BAG 200 MG IVPB (07:00)
--- NOTE | 2024-06-23 07:12 | WPDANESEPPF ---
Anes - Initial Pre Proc Eval Procedure: Operation Date: 06/23/24 07:30 Proposed Procedures p Left Total Knee Arthroplasty - Juan Prince MD Date/Time: 06/23/24 07:12 Surgeon: Juan Prince MD Pre Op Diagnosis: oa left knee Patient Data Age: 68 Gender: M Height: 1.7 m Weight: 106.4 kg Last Vital Signs Temp 98.0 F 06/12/24 07:43 Pulse 68 06/12/24 07:43 Resp 16 06/12/24 07:43 BP 151/83 H 06/12/24 07:43 Pulse Ox 100 06/12/24 07:43 O2 Del Method Room Air 06/12/24 07:43 Allergies Allergy/AdvReac Type Severity Reaction Status Date / Time niacin Allergy Mild HIVES Verified 06/12/24 07:41 fish oil AdvReac Mild Nausea Verified 06/12/24 07:41 Home Medications ?Medication ?Instructions ?Recorded ?Confirmed ?Type omeprazole 20 mg capsule,delayed 20 mg PO DAILY #90 caps 10/31/23 06/12/24 Rx release lisinopril 10 mg tablet 10 mg PO DAILY #90 tabs 12/09/23 06/12/24 Rx atorvastatin 10 mg tablet See Rx Instructions .Route 05/06/24 06/12/24 Rx .COMPLEX #90 tabs rivaroxaban 20 mg tablet (Xarelto) See Rx Instructions .Route 06/09/24 06/12/24 Rx .COMPLEX #90 tabs Patient hx anesthesia problems: none Family hx anesthesia problems: none Results Review: All pre-operative results and documents have been reviewed as part of the pre-operative evaluation. [facility] Past Medical History Medical History Adenomatous colon polyp Osteoarthritis of both knees Cellulitis of right lower extremity Edema of right lower extremity Hypertensive heart disease without CHF FILIPE (obstructive sleep apnea) Prediabetes Surgical History Surgical History History of elbow surgery Lt History of hernia surgery Family History Family History Mother Cancer of blood vessel Father No problems noted. Mother Family history of blood dyscrasia Grandparent Family history of heart disease in male family member before age 55 Social History Social History Smoking packs per day: 1 Smoking cigarettes per day: 20.0 Years smoked: 19 Smoking pack-years: 19.00 Smoking status: Former smoker Tobacco type: cigarettes Second hand tobacco smoke exposure: No Smoking end date: 08/12/90 Alcohol intake: current Alcohol use details: occasionally Substance use: never Substance use type: does not use Do You Feel Safe in your Home?: Yes Lack of Transportation: No Lack of Food: Never True Current Housing: I Have Housing Concerned About Future Housing: No Difficulty Paying Gas/Electric Bills: No Difficulty Paying for Meds: No Currently Unemployed: No Education: High School Diploma/GED Difficulty w/ Childcare or Family Care: No Living arrangements: with family Additional living arrangements comments: Occupation/Education: occupation Gender identity (if verbalized by the patient): Male Sexual Orientation (if Verbalized by the Patient): Straight or Heterosexual Spiritual care concerns: No Anes - Eval Final PreProcedure Day of Procedure 06/23/24 07:12 Patient weight: obese Lungs: normal air movement Airway: Mallampati scale class II Neurological: alert and oriented Last oral intake: >/= 8 hours ASA classification: III Emergent: no Anesthetic plan: proceed Anesthesia type and monitoring: general ETT and standard monitoring Results Review: All pre-operative results and documents have been reviewed as part of the pre-operative evaluation. HTN, hyperlipidemia, FILIPE but not on CPAP, chr DVT L ankle, BMI 36. Informed Consent: The patient's anesthetic plan and its attendant risks and benefits were discussed with the patient/family/POA. Questions were solicited and answers provided to the satisfaction of the patient/family/POA.
--- NOTE | 2024-06-23 07:26 | WPDANESPNB ---
Anes - Peripheral Nerve Block Date/Time: 06/23/24 07:26 I have discussed with the patient/family/POA the placement of a peripheral nerve block for post-operative pain management, including associated risks, benefits, complications, and side effects. Alternative methods of post-operative analgesia were detailed. Questions were solicited and answers provided to the satisfaction of the patient/family/POA. Time-Out: A pre-procedural Time-Out was completed immediately before starting the procedure and confirmed: Patient Identification, Site, Procedure, Patient Position and the Availability of Requisite Equipment. Clinical Indications: Acute post-operative pain management requested by the operative surgeon. Nerve Block Insertion Note Anes-nerve block: adductor canal left Patient position: supine Skin prep: chlorhexidine Needle: 22 gauge, stimulating, insulated echogenic needle. Needle length: 80 mm Technique: ultrasound Injectate: other (Bupiv 0.5% 15 mls. ) Observations: tolerated well Complications: none Procedure start time:: 720 Procedure end time:: 725
[2024-06-23] MEDS: ceFAZolin 2 GM/D5W 50 ML 2 GM/50 ML BAG IVPB ×2 (07:50→17:12)
[2024-06-23] MEDS: SODIUM CHLORIDE 0.9% IV 37.7 ML, MORPHINE SULFATE INJ (*CRX) 2 MG, ROPivacaine HCL 1% 2... INFILTRATE (08:12)
[2024-06-23] MEDS: ceFAZolin SODIUM 1 GM VIAL 2 GM IV PUSH (09:04)
[2024-06-23] MEDS: TRANEXAMIC ACID 1,000 MG/10 ML AMPUL 1000 MG IV PUSH (09:10)
--- NOTE | 2024-06-23 09:12 | P.OP_ITS ---
Procedure Note - Detailed Date of Procedure 06/23/24 Pre-op Diagnosis Osteoarthritis Left knee Post-op Diagnosis Same Procedure Performed LEFT Total Knee arthroplasty Surgeon Juan Prince MD Anesthesia General Indications Pain and Arthritis Description of Procedure The patient was brought to operating room #8. A general anesthetic was administered. Placed on the operating table and sterilely prepped and draped in usual manner. A longitudinal incision was made. Tourniquet inflated to 300 mmHg for a total of 40 minutes. Dissection was carried down to the fascia. Medial parapatellar incision was made and the patella subluxated laterally. P atella cut from 25 to 15 mm. The tibia was cut perpendicular to the long axis and femur cut in 5 degrees of valgus. The components were trialed and the knee was noted to be stable with excellent motion. The soft tissues balanced, hemostasis obtained. All [address], 71 tibia, 70 femur, 37 mm patella, and 12 mm poly. Motion was 0-125 degrees with good stability in both flexion and extension. The wound was closed with #2 Vicryl, 2-0 Vicryl and laura. [employer] Estimated Blood Loss 200 Drains No Packing No Pathology None sent Complications No immediate complications Condition Stable Disposition PACU [facility] Billing Surgery - Charge Forward: Surgery Billing ([id number] TOTAL KNEE)
[2024-06-23] MEDS: fentaNYL CITRATE INJ (*CRX) 100 MCG/2 ML VIAL 25 MCG IV PUSH ×8 (09:55→10:35)
--- NOTE | 2024-06-23 11:12 | ADMGEN ---
This patient, Hans Cole, was admitted to [facility] Surg Room 313-01. Patient/family oriented to hospital policies and general routines including ID bracelet, bed and alarms, visiting hours, pain management, procedures, bathroom and other care routines, personal items, smoking policy, room service/diet, and visiting hours. Information on how to activate the Rapid Response Team has been discussed. Patient/Family are encouraged to report perceived risks to care and to ask questions if they do not understand what they are told or what they should do.
[2024-06-23] MEDS: ONDANSETRON INJ 4 MG/2 ML VIAL IV PUSH ×2 (13:50→21:00)
--- NOTE | 2024-06-23 14:42 | P.CONIM_ITS ---
Assessment and Plan Assessment and plan (1) Osteoarthritis of left knee: Code(s): M17.12 - Unilateral primary osteoarthritis, left knee Status: Acute Assessment and Plan: Status post left arthroplasty by Orthopedics on 06/23/24 Xarelto Postop cefazolin Celebrex, [place] and Dilaudid for pain management (2) Chronic deep vein thrombosis (DVT): Code(s): I82.509 - Chronic embolism and thrombosis of unspecified deep veins of unspecified lower extremity Status: Acute Assessment and Plan: Recommend continuing home Xarelto tomorrow (3) Essential (primary) hypertension: Code(s): I10 - Essential (primary) hypertension Status: Acute Assessment and Plan: Continue lisinopril (4) Hyperlipidemia, unspecified: Qualifiers: Hyperlipidemia type: mixed hyperlipidemia Qualified Code(s): E78.2 - Mixed hyperlipidemia Code(s): E78.5 - Hyperlipidemia, unspecified Status: Acute Assessment and Plan: Continue Lipitor HPI Date of Consult Consult date: 06/23/24 Requesting Physician: Juan Prince MD Primary Care Provider: Arturo Burns MD Consult Narrative Reason for consult: Medical management Narrative: Hans Cole is a 68 year old male past medical history of sleep apnea, hypertension, CAD, chronic DVT of LLE s/p L Achillis tendon tear, presents the hospital for left total knee arthroplasty by Orthopedics. Patient states that his pain controlled after surgery. He states that he got up to use the restroom and had slight bleeding at the site. [place] are intact. Patient denies any complaints Review of Systems Review of Systems: 12 systems were reviewed and are negativ e except for as per HPI. [facility] Past Medical History Medical History (Updated 06/23/24 @ 14:50 by Clarita Amaro, EXPENSE CLERK) Osteoarthritis of left knee CAD (coronary artery disease) Chronic deep vein thrombosis (DVT) Adenomatous colon polyp Osteoarthritis of both knees Cellulitis of right lower extremity Edema of right lower extremity Hypertensive heart disease without CHF FILIPE (obstructive sleep apnea) Prediabetes Surgical History Surgical History History of elbow surgery Lt History of hernia surgery Family History Family History Mother Cancer of blood vessel Father No problems noted. Mother Family history of blood dyscrasia Grandparent Family history of heart disease in male family member before age 55 Social History Social History Smoking packs per day: 1 Smoking cigarettes per day: 20.0 Years smoked: 19 Smoking pack-years: 19.00 Smoking status: Former smoker Tobacco type: cigarettes Second hand tobacco smoke exposure: No Smoking end date: 08/12/90 Alcohol intake: never Alcohol use details: occasionally Substance use: never Substance use type: does not use Do You Feel Safe in your Home?: Yes Lack of Transportation: No Lack of Food: Never True Current Housing: I Have Housing Concerned About Future Housing: No Difficulty Paying Gas/Electric Bills: No Difficulty Paying for Meds: No Currently Unemployed: No Education: High School Diploma/GED Difficulty w/ Childcare or Family Care: No Living arrangements: with family Additional living arrangements comments: Occupation/Education: occupation Gender identity (if verbalized by the patient): Male Sexual Orientation (if Verbalized by the Patient): Straight or Heterosexual Spiritual care concerns: No Meds Home Medications and Allergies Home Medications ?Medication ?Instructions ?Recorded ?Confirmed ?Type omeprazole 20 mg capsule,delayed 20 mg PO DAILY #90 caps 10/31/23 06/12/24 Rx release lisinopril 10 mg tablet 10 mg PO DAILY #90 tabs 12/09/23 06/12/24 Rx atorvastatin 10 mg tablet See Rx Instructions .Route 05/06/24 06/12/24 Rx .COMPLEX #90 tabs rivaroxaban 20 mg tablet (Xarelto) See Rx Instructions .Route 06/09/24 06/12/24 Rx .COMPLEX #90 tabs Allergies Allergy/AdvReac Type Severity Reaction Status Date / Time niacin Allergy Mild HIVES Verified 06/23/24 11:12 fish oil AdvReac Mild Nausea Verified 06/23/24 11:12 Vital Signs Vital Signs - 24 hr 06/23/24 06:30 06/23/24 09:35 06/23/24 09:45 Temperature 98.3 F 97.1 F L Pulse Rate 68 66 61 Respiratory Rate 16 18 11 L Blood Pressure 148/83 H 95/57 L 103/68 Pulse Oximetry 100 99 99 Oxygen Delivery Room Air Simple Face Mask Simple Face Mask Oxygen Flow Rate 8 8 06/23/24 10:00 06/23/24 10:15 06/23/24 10:30 Temperature Pulse Rate 64 63 67 Respiratory Rate 14 10 L 10 L Blood Pressure 121/71 125/69 122/72 Pulse Oximetry 100 100 94 Oxygen Delivery Simple Face Mask Simple Face Mask Room Air Oxygen Flow Rate 8 8 06/23/24 10:45 06/23/24 12:38 06/23/24 13:14 Temperature Pulse Rate 67 Respiratory Rate 12 Blood Pressure 123/71 Pulse Oximetry 92 Oxygen Delivery Room Air Room Air Room Air Oxygen Flow Rate 06/23/24 13:42 Temperature Pulse Rate Respiratory Rate Blood Pressure Pulse Oximetry Oxygen Delivery Room Air Oxygen Flow Rate Exam Narrative: General: well appearing, appears stated age. HEENT: normocephalic, atraumatic. Mucous membranes moist. EOMI, PERRLA, bilateral sclera anicteric, no conjunctival injection. Neck supple without JVD, lymphadenopathy, or bruit. Respiratory: clear to ascultation bilaterally. No rales/rhonic/wheezes. Cardiovascular: Regular rate and rhythm, normal S1-S2 upon ascultation. No murmurs, rubs, or clicks. PMI is nondisplaced, capillary refill less than 3 second. Abdomen: Soft, round, no pulsatile masses, nondistended and nontender. No rebound, no guarding. No CVA tenderness, no hepatosplenomegaly. Bowel sounds present to all four quadrants. No high pitch or tinkling sounds, resonant to percussion. Extremities: No cyanosis, clubbing, or edema present. Pulses are palpable 2/2. Left knee surgical site with no erythema or induration so, laura intact Neuro: Alert and orientated x 4. PERRLA. Cranial nerves 2-12 intact without focal deficit. Skin: Warm, dry, and intact, without rash, erythema, or lesion. Psych: pleasant, cooperative, normal speech, normal affect, no hallucinations, no dysarthia Quality VTE Prophylaxis VTE prophylaxis: mechanical ordered and pharmacologic ordered Hospitalist MIPS Advance Care Plan I have confirmed that the patient's Advanced Care Plan is present, code status is documented, or surrogate decision maker is listed in patient medical record.: Yes Medication Reconciliation I have utilized all available resources to obtain, update and review the patients current medications (includes all prescriptions, OTC, herbals, cannabis, and nutritional supplements).: Yes
[2024-06-23] MEDS: CELECOXIB 200 MG CAPSULE PO (17:05)
[2024-06-23] MEDS: RIVAROXABAN 10 MG TABLET PO (17:06)
[2024-06-23] MEDS: HYDROcodone/acetaminophen (*CRX) 5-325 MG TABLET 1 TAB PO (17:08)
[2024-06-23] MEDS: HYDROcodone/acetaminophen (*CRX) 7.5-325 MG TABLET 1 TAB PO (20:58)
[2024-06-23] MEDS: ATORVASTATIN 10 MG TABLET BY MOUTH (20:59)
[2024-06-24 00:15] VITALS: BP 133/78; PULSE 77; RESP 12; TEMP 36.6; O2SAT 94
[2024-06-24] MEDS: HYDROcodone/acetaminophen (*CRX) 7.5-325 MG TABLET 1 TAB PO ×4 (00:56→12:20)
[2024-06-24] MEDS: ceFAZolin 2 GM/D5W 50 ML 2 GM/50 ML BAG IVPB ×2 (00:58→08:58)
[2024-06-24 04:48] VITALS: BP 142/91; PULSE 74; RESP 14; TEMP 36.2; O2SAT 98
[2024-06-24 05:53] LABS: Basophils Absolute Auto 0.1 K/mm3 (0.0-0.1); Basophils Percent Auto 0.7 % (0.2-1.2); Eosinophils Absolute Auto 0.3 K/mm3 (0-0.3); Eosinophils Percent Auto 2.4 % (0-4.4); Hematocrit 42.6 % (42.0-52.0); Hemoglobin 13.2 g/dL (14.0-18.0); Immature Granulocyte Absolute 0.04 K/mm3 (0.00-0.031); Immature Granulocyte Percent A 0.4 % (0-0.5); Lymphocytes Absolute Auto 1.74 K/mm3 (0.9-3.2); Lymphocytes Percent Auto 16.5 % (18.3-44.2); Mean Corpuscular Hemoglobin 29.7 pg (26-34); Mean Corpuscular Volume 95.9 fl (80-100); Mean Platelet Volume 8.6 fl (7.4-10.4); Monocytes Absolute Auto 1.3 K/mm3 (0.1-0.6); Monocytes Percent Auto 12.3 % (2.6-8.5); Neutrophils Absolute Auto 7.1 K/mm3 (1.3-6.7); Neutrophils Percent Auto 67.7 % (45.5-73.1); Platelet Count Result 322 k/mm3 (150-375); Red Blood Count 4.44 M/mm3 (4.6-6.20); Red Cell Distribution Width 13.1 % (11.5-14.5); White Blood Count 10.5 K/mm3 (4.5-10.0)
[2024-06-24 06:14] LABS: Anion Gap 4 mmol/L (4-12); Blood Urea Nitrogen 22 mg/dL (9-20); Calcium 8.1 mg/dL (8.4-10.2); Carbon Dioxide 30 mmol/L (22-30); Chloride 102 mmol/L (98-107); Estimated CRCL calculation 74 ml/min; Estimated Glomerular Filt Rate > 60; Glucose 122 mg/dL (65-110); Potassium 4.7 mmol/L (3.4-5.0); Sodium 136 mmol/L (137-145)
--- NOTE | 2024-06-24 07:12 | P.PNOP_ITS ---
Progress Note: A&P Assessment and Plan (1) History of knee replacement procedure of left knee: Code(s): Z96.652 - Presence of left artificial knee joint Status: Acute Assessment and Plan: Patient underwent total knee arthroplasty left. He is doing well postoperatively. I think he can be dismissed at this time. His had a little driving but otherwise is doing fine. Follow-up 2 weeks for sutures out. Subjective Subjective Date/Time Seen: 06/24/24 07:12 Post Op day: 1 Principal diagnosis: Left Total Knee Review of Systems Review of Systems: 12 systems were reviewed and are negativ e except for as per HPI. Exam Narrative: Patient wiggles toes. Dressing is intact. Neurologically appears to be intact and can walk with a walker. Objective Data Vital Signs Vital Signs: Vital Signs - 24 hr 06/23/24 09:35 06/23/24 09:45 06/23/24 10:00 Temperature 97.1 F L Pulse Rate 66 61 64 Respiratory Rate 18 11 L 14 Blood Pressure 95/57 L 103/68 121/71 Pulse Oximetry 99 99 100 Oxygen Delivery Simple Face Mask Simple Face Mask Simple Face Mask Oxygen Flow Rate 8 8 8 06/23/24 10:15 06/23/24 10:30 06/23/24 10:45 Temperature Pulse Rate 63 67 67 Respiratory Rate 10 L 10 L 12 Blood Pressure 125/69 122/72 123/71 Pulse Oximetry 100 94 92 Oxygen Delivery Simple Face Mask Room Air Room Air Oxygen Flow Rate 8 06/23/24 11:03 06/23/24 11:18 06/23/24 11:48 Temperature 98.8 F 98.5 F 98.5 F Pulse Rate 70 67 65 Respiratory Rate 16 14 16 Blood Pressure 140/71 132/74 132/74 Pulse Oximetry 97 98 96 Oxygen Delivery Oxygen Flow Rate 06/23/24 12:38 06/23/24 12:48 06/23/24 13:14 Temperature 98.4 F Pulse Rate 67 Respiratory Rate 16 Blood Pressure 142/77 H Pulse Oximetry 95 Oxygen Delivery Room Air Room Air Oxygen Flow Rate 06/23/24 13:42 06/23/24 16:41 06/23/24 16:48 Temperature 98.7 F Pulse Rate 76 Respiratory Rate 18 Blood Pressure 144/84 H Pulse Oximetry 98 96 Oxygen Delivery Room Air Room Air Oxygen Flow Rate 06/23/24 20:33 06/24/24 00:15 06/24/24 04:48 Temperature 97.9 F 97.8 F 97.1 F L Pulse Rate 79 77 74 Respiratory Rate 13 12 14 Blood Pressure 133/75 133/78 142/91 H Pulse Oximetry 97 94 98 Oxygen Delivery Oxygen Flow Rate Intake/Output Intake/Output: Intake & Output 06/21/24 06/22/24 06/23/24 06/24/24 23:59 23:59 23:59 23:59 Intake Total 900 Output Total 700 300 Balance 200 -300 Meds/Results Medications: Active Medications Generic Name Dose Route Start Last Admin Trade Name Freq PRN Reason Stop Dose Admin Hydrocodone Bitart/Acetaminophen 1 tab 06/23/24 11:03 06/23/24 17:08 Hydrocodone/Acetaminophen (*Crx) 5-325 Mg Tablet PO 1 tab Q4H PRN Administration Pain Rated 4-6 Hydrocodone Bitart/Acetaminophen 1 tab 06/23/24 11:03 06/24/24 05:16 Hydrocodone/Acetaminophen (*Crx) 7.5-325 Mg Tablet PO 1 tab Q4H PRN Administration Pain Rated 7-10 Atorvastatin Calcium 10 mg 06/23/24 21:00 06/23/24 20:59 Atorvastatin 10 Mg Tablet BY MOUTH 10 mg HS TEODORA Administration Celecoxib 200 mg 06/23/24 17:00 06/23/24 17:05 Celecoxib 200 Mg Capsule PO 200 mg BIDWM TEODORA Administration Diphenhydramine HCl 25 mg 06/23/24 11:03 Diphenhydramine Hcl Inj 50 Mg/Ml Vial IV PUSH Q6H PRN Itching Hydromorphone HCl 1 mg 06/23/24 11:03 Hydromorphone Hcl Inj (*Crx) 2 Mg/Ml Vial IV PUSH Q2H PRN Breakthrough Pain Rated 7-10 or NPO Hydromorphone HCl 0.5 mg 06/23/24 11:29 Hydromorphone Hcl Inj (*Crx) 2 Mg/Ml Vial IV PUSH Q2H PRN Breakthrough Pain Rated 4-6 or NPO Ibuprofen 800 mg in 200 mls @ 400 mls/hr 06/23/24 11:03 Caldolor 800 Mg/200 Ml IVPB Q6H PRN Breakthrough Pain Rated 1-3 or NPO Cefazolin Sodium 2 gm in 50 mls @ 100 mls/hr 06/23/24 16:00 06/24/24 00:58 Ancef 2 Gm/D5w 50 Ml IVPB 06/24/24 08:29 100 mls/hr Q8H TEODORA Administration Lisinopril 10 mg 06/24/24 21:00 Lisinopril 10 Mg Tablet PO HS [facility]1983 Naloxone HCl 0.1 mg 06/23/24 11:03 Naloxone Hcl 0.4 Mg/Ml Vial IV PUSH Q2M PRN Opiate Reversal Ondansetron HCl 4 mg 06/23/24 11:03 06/23/24 21:00 Ondansetron Inj 4 Mg/2 Ml Vial IV PUSH 4 mg Q4H PRN Administration Nausea And Vomiting Pantoprazole Sodium 40 mg 06/24/24 21:00 Pantoprazole 40 Mg Tablet PO HS [facility]1983 Polyethylene Glycol 17 gm 06/24/24 09:00 Polyethylene Glycol 3350 17 Gm Powd.Pack PO QAM [facility] Rivaroxaban 10 mg 06/23/24 17:00 06/23/24 17:06 Rivaroxaban 10 Mg Tablet PO 07/04/24 17:01 10 mg DAILY@17 [facility] Administration Senna/Docusate Sodium 2 tab 06/23/24 17:00 06/23/24 17:06 Senna/Docusate Sodium Tablet PO Not Given BID [facility] Tramadol HCl 50 mg 06/23/24 11:03 Tramadol Hcl (*Crx) 50 Mg Tablet PO Q4H PRN Pain Rated 1-3 Radiology Results: ITS Impressions Knee X-Ray 06/23/24 09:51 IMPRESSION: 1. Left total knee arthroplasty, negative for postoperative purposes. Labs Labs: Laboratory Results - last 24 hr 06/23/24 06/24/24 11:43 05:26 WBC 10.5 H RBC 4.44 L Hgb 13.2 L Hct 42.6 MCV 95.9 MCH 29.7 MCHC 31.0 L RDW 13.1 Plt Count 322 MPV 8.6 Immature Gran % (Auto) 0.4 Neut % (Auto) 67.7 Lymph % (Auto) 16.5 L [place] % (Auto) 12.3 H Eos % (Auto) 2.4 Baso % (Auto) 0.7 Lymph # (Auto) 1.74 [place] # (Auto) 1.3 H Eos # (Auto) 0.3 Baso # (Auto) 0.1 Abs Immat Gran (auto) 0.04 H Absolute Neuts (auto) 7.1 H Absolute Nucleated RBC 0.000 Nucleated RBC % 0.0 Sodium 136 L Potassium 4.7 Chloride 102 Carbon Dioxide 30 Anion Gap 4 BUN 22 H Creatinine 0.94 Estim Creat Clear Calc 74 Estimated GFR > 60 Glucose 122 H Calcium 8.1 L Blood Type A Positive Antibody Screen Negative
[2024-06-24 07:44] VITALS: BP 151/85; PULSE 78; RESP 18; TEMP 36.1; O2SAT 96
[2024-06-24] MEDS: SENNA/DOCUSATE SODIUM TABLET 2 TAB PO (08:57)
[2024-06-24] MEDS: CELECOXIB 200 MG CAPSULE PO (08:58)
[2024-06-24] MEDS: polyethylene glycoL 3350 17 GM POWD.PACK PO (08:58)
--- NOTE | 2024-06-24 11:55 | PM.IMCN ---
Assessment and Plan Assessment and plan (1) Osteoarthritis of left knee: Code(s): M17.12 - Unilateral primary osteoarthritis, left knee Status: Acute Assessment and Plan: Status post left arthroplasty by Orthopedics on 06/23/24 Xarelto Postop cefazolin Celebrex, [place] and Dilaudid for pain management No changes (2) Chronic deep vein thrombosis (DVT): Code(s): I82.509 - Chronic embolism and thrombosis of unspecified deep veins of unspecified lower extremity Status: Acute Assessment and Plan: Recommend continuing home Xarelto (3) Essential (primary) hypertension: Code(s): I10 - Essential (primary) hypertension Status: Acute Assessment and Plan: Continue lisinopril (4) Hyperlipidemia, unspecified: Qualifiers: Hyperlipidemia type: mixed hyperlipidemia Qualified Code(s): E78.2 - Mixed hyperlipidemia Code(s): E78.5 - Hyperlipidemia, unspecified Status: Acute Assessment and Plan: Continue Lipitor HPI Date of Consult Consult date: 06/24/24 Requesting Physician: Jesus Chiu PA-C Primary Care Provider: Arturo Burns MD Consult Narrative Narrative: Hans Cole is a 68 year old male past medical history of sleep apnea, hypertension, CAD, chronic DVT of LLE s/p L Achillis tendon tear, presents the hospital for left total knee arthroplasty by Orthopedics. Patient states that his pain controlled after surgery. She continues to do well postoperatively. Patient has been cleared for discharge per Orthopedic this. Follow-up 2 weeks with Orthopedics for suture removal. Review of Systems Review of Systems: 12 systems were reviewed and are negative except for as per HPI. [facility] Past Medical History Medical History (Updated 06/23/24 @ 14:50 by Clarita Amaro, COMMUTATOR REPAIRER) Osteoarthritis of left knee CAD (coronary artery disease) Chronic deep vein thrombosis (DVT) Adenomatous colon polyp Osteoarthritis of both knees Cellulitis of right lower extremity Edema of right lower extremity Hypertensive heart disease without CHF FILIPE (obstructive sleep apnea) Prediabetes Surgical History Surgical History (Updated 06/24/24 @ 07:14 by Juan Prince MD) History of elbow surgery Lt History of hernia surgery Family History Family History Mother Cancer of blood vessel Father No problems noted. Mother Family history of blood dyscrasia Grandparent Family history of heart disease in male family member before age 55 Social History Social History Smoking packs per day: 1 Smoking cigarettes per day: 20.0 Years smoked: 19 Smoking pack-years: 19.00 Smoking status: Former smoker Tobacco type: cigarettes Second hand tobacco smoke exposure: No Smoking end date: 08/12/90 Alcohol intake: never Alcohol use details: occasionally Substance use: never Substance use type: does not use Do You Feel Safe in your Home?: Yes Lack of Transportation: No Lack of Food: Never True Current Housing: I Have Housing Concerned About Future Housing: No Difficulty Paying Gas/Electric Bills: No Difficulty Paying for Meds: No Currently Unemployed: No Education: High School Diploma/GED Difficulty w/ Childcare or Family Care: No Living arrangements: with family Additional living arrangements comments: Occupation/Education: occupation Gender identity (if verbalized by the patient): Male Sexual Orientation (if Verbalized by the Patient): Straight or Heterosexual Spiritual care concerns: No Meds Home Medications and Allergies Home Medications ?Medication ?Instructions ?Recorded ?Confirmed ?Type omeprazole 20 mg capsule,delayed 20 mg PO DAILY #90 caps 10/31/23 06/12/24 Rx release lisinopril 10 mg tablet 10 mg PO DAILY #90 tabs 12/09/23 06/12/24 Rx atorvastatin 10 mg tablet See Rx Instructions .Route 05/06/24 06/12/24 Rx .COMPLEX #90 tabs rivaroxaban 20 mg tablet (Xarelto) See Rx Instructions .Route 06/09/24 06/12/24 Rx .COMPLEX #90 tabs doxycycline hyclate 100 mg tablet 100 mg PO DAILY #10 tabs 06/24/24 Rx hydrocodone 7.5 mg-acetaminophen 1 tablet PO Q4H PRN pain #40 tabs 06/24/24 Rx 325 mg tablet rivaroxaban 10 mg tablet (Xarelto) 10 mg PO DAILY #10 tabs 06/24/24 Rx Allergies Allergy/AdvReac Type Severity Reaction Status Date / Time niacin Allergy Mild HIVES Verified 06/23/24 11:12 fish oil AdvReac Mild Nausea Verified 06/23/24 11:12 Vital Signs Vital Signs - 24 hr 06/23/24 12:38 06/23/24 12:48 06/23/24 13:14 Temperature 98.4 F Pulse Rate 67 Respiratory Rate 16 Blood Pressure 142/77 H Pulse Oximetry 95 Oxygen Delivery Room Air Room Air 06/23/24 13:42 06/23/24 16:41 06/23/24 16:48 Temperature 98.7 F Pulse Rate 76 Respiratory Rate 18 Blood Pressure 144/84 H Pulse Oximetry 98 96 Oxygen Delivery Room Air Room Air 06/23/24 20:33 06/24/24 00:15 06/24/24 04:48 Temperature 97.9 F 97.8 F 97.1 F L Pulse Rate 79 77 74 Respiratory Rate 13 12 14 Blood Pressure 133/75 133/78 142/91 H Pulse Oximetry 97 94 98 Oxygen Delivery 06/24/24 07:44 Temperature 96.9 F L Pulse Rate 78 Respiratory Rate 18 Blood Pressure 151/85 H Pulse Oximetry 96 Oxygen Delivery Exam Narrative: General: well appearing, appears stated age. HEENT: normocephalic, atraumatic. Mucous membranes moist. EOMI, PERRLA, bilateral sclera anicteric, no conjunctival injection. Neck supple without JVD, lymphadenopathy, or bruit. Respiratory: clear to ascultation bilaterally. No rales/rhonic/wheezes. Cardiovascular: Regular rate and rhythm, normal S1-S2 upon ascultation. No murmurs, rubs, or clicks. PMI is nondisplaced, capillary refill less than 3 second. Abdomen: Soft, round, no pulsatile masses, nondistended and nontender. No rebound, no guarding. No CVA tenderness, no hepatosplenomegaly. Bowel sounds present to all four quadrants. No high pitch or tinkling sounds, resonant to percussion. Extremities: No cyanosis, clubbing, or edema present. Pulses are palpable 2/2. Left knee surgical site with no erythema or induration so, laura intact Neuro: Alert and orientated x 4. PERRLA. Cranial nerves 2-12 intact without focal deficit. Skin: Warm, dry, and intact, without rash, erythema, or lesion. Psych: pleasant, cooperative, normal speech, normal affect, no hallucinations, no dysarthia Results Labs 06/24/24 05:26 06/24/24 05:26 Labs: Short CBC 06/24/24 Range/Units 05:26 WBC 10.5 H (4.5-10.0) K/mm3 Hgb 13.2 L (14.0-18.0) g/dL Hct 42.6 (42.0-52.0) % Plt Count 322 (150-375) k/mm3 [facility] 06/24/24 05:26 Sodium 136 L Potassium 4.7 Chloride 102 Carbon Dioxide 30 BUN 22 H Creatinine 0.94 Glucose 122 H Calcium 8.1 L Quality VTE Prophylaxis VTE prophylaxis: mechanical ordered and pharmacologic ordered
[2024-06-24 12:48] VITALS: BP 128/75; PULSE 79; RESP 18; TEMP 36.6; O2SAT 100
--- NOTE | 2024-06-24 15:32 | PC.NURSE ---
Pt had numerous questions about discharge, including driving and xarelto dosing. Call made to Suresh, who okayed driving in one week. Suresh also only wants pt on xarelto 10mg daily for 10 days, when pt normally takes 20 daily for chronic DVT. Pt educated to call provider with any further questions and to f/u with primary regarding xarelto dosing.
== END 2024-06-24 14:30 | disposition home or self-care (01) ==
LOC: ANHSURGERY 06:07 → ANH3MEDSUR 11:05
PROVIDERS: Orthopaedic Surgery; PCP Family Medicine; Visit Provider Physician Assistant
PROC: (CPT 27447; principal; 2024-06-23 07:30)
DX: M17.12 Unilateral primary osteoarthritis, left knee (principal); G89.18 Other acute postprocedural pain; I10 Essential (primary) hypertension; E78.2 Mixed hyperlipidemia; I25.10 Atherosclerotic heart disease of native coronary artery without angina pectoris; G47.30 Sleep apnea, unspecified; I82.502 Chronic embolism and thrombosis of unspecified deep veins of left lower extremity; Z79.01 Long term (current) use of anticoagulants
CPT/HCPCS: 27447; 64447; 36415; 73560; 80048; 85025; 86850; 86900; 86901; 97110; 97116; 97161; 97165; 97530; A9270; C1713; C1776; J0171; J0690; J1100; J1885; J2003; J2250; J2270; J2405; J2704; J2795; J3010; J3370; J7120

== ENCOUNTER 2024-07-30 01:02 | Day surgery (SDC) | payer OTHER, SELFPAY ==
--- NOTE | 2024-07-24 09:10 | P.HP_ITS ---
H&P: HPI History of Present Illness Date/Time: 07/24/24 09:10 Chief Complaint: Patient is knee pain left. His knee is little bit stiff after knee replacement surgery. He has motion lacking 3? of extension about 90-95? of flexion. He is working hard in therapy but not getting terminal flexion. He would like to consider manipulation. Review of Systems Musculoskeletal: Musculoskeletal: Reports myalgias, Reports joint swelling and Reports stiffness Neurologic: Reports abnormal gait [facility] Past Medical History Medical History Osteoarthritis of left knee CAD (coronary artery disease) Chronic deep vein thrombosis (DVT) Adenomatous colon polyp Osteoarthritis of both knees Cellulitis of right lower extremity Edema of right lower extremity Hypertensive heart disease without CHF FILIPE (obstructive sleep apnea) Prediabetes Surgical History Surgical History History of elbow surgery Lt History of hernia surgery Family History Family History Mother Cancer of blood vessel Father No problems noted. Mother Family history of blood dyscrasia Grandparent Family history of heart disease in male family member before age 55 Social History Social History Smoking packs per day: 1 Smoking cigarettes per day: 20.0 Years smoked: 19 Smoking pack-years: 19.00 Smoking status: Former smoker Tobacco type: cigarettes Second hand tobacco smoke exposure: No Smoking end date: 08/12/90 Alcohol intake: never Alcohol use details: occasionally Substance use: never Substance use type: does not use Do You Feel Safe in your Home?: Yes Lack of Transportation: No Lack of Food: Never True Current Housing: I Have Housing Concerned About Future Housing: No Difficulty Paying Gas/Electric Bills: No Difficulty Paying for Meds: No Currently Unemployed: No Education: High School Diploma/GED Difficulty w/ Childcare or Family Care: No Living arrangements: with family Additional living arrangements comments: Occupation/Education: occupation Gender identity (if verbalized by the patient): Male Sexual Orientation (if Verbalized by the Patient): Straight or Heterosexual Spiritual care concerns: No Meds Home Medications and Allergies Home Medications ?Medication ?Instructions ?Recorded ?Confirmed ?Type omeprazole 20 mg capsule,delayed 20 mg PO DAILY #90 caps 10/31/23 07/22/24 Rx release lisinopril 10 mg tablet 10 mg PO DAILY #90 tabs 12/09/23 07/22/24 Rx atorvastatin 10 mg tablet See Rx Instructions .Route 05/06/24 07/22/24 Rx .COMPLEX #90 tabs rivaroxaban 20 mg tablet (Xarelto) See Rx Instructions .Route 06/09/24 07/22/24 Rx .COMPLEX #90 tabs hydrocodone 7.5 mg-acetaminophen 1 tablet PO Q4H PRN pain #40 tabs 06/24/24 07/22/24 Rx 325 mg tablet Allergies Allergy/AdvReac Type Severity Reaction Status Date / Time niacin Allergy Mild HIVES Verified 07/22/24 07:12 fish oil AdvReac Mild Nausea Verified 07/22/24 07:12 Exam Narrative: Patient has motion his knee from about 3 to 95?. He stiff in terminal at full flexion. He has pain to palpation manipulation. Eyes: General: appearance normal, both eyes and all related structures Neck: Neck: supple Resp: Effort & Inspection: normal respiratory effort Cardio: Rate: regular rate Rhythm: regular rhythm Assessment and Plan Assessment and plan (1) History of knee replacement procedure of left knee: Code(s): Z96.652 - Presence of left artificial knee joint Status: Acute Assessment and Plan: Patient has stiffness in his left knee status post total knee arthroplasty. Unfortunately has not been able to make significant progress in therapy. He continues to be symptomatic and would like to consider manipulation. I discussed this with him in detail including the risks, benefits, limitations, and alternatives. He understands and agrees would like to proceed. He knows that may not be able to get full motion but hopefully will improve his motion to reasonable degree. He understands and agrees. (2) Adhesive capsulitis of left knee: Code(s): M76.892 - Other specified enthesopathies of left lower limb, excluding foot Status: Acute
[2024-07-24 09:19] VITALS: BMI 33.8
--- NOTE | 2024-07-24 09:40 | PC.NURSE ---
Addendum entered by Anish Shine RN 07/25/24 12:10: Patient says Dr's office told him not to hold Xarelto since there would be no incisions. Original Note: Report to the Outpatient Waiting Room, entrance under the green pavilion located off [facility], at time __6:00AM____ on date ___07/30/24____. Planned Procedure Time: ___7:30AM____.? Time changes happen often and if your time is changed the preop area will call you the afternoon before. - You and your visitor will be asked to self-screen and do not enter if you have any COVID symptoms. Please call surgeon if you need to reschedule. - A mask is optional within the hospital at this time. Patients may have clear liquids (water, carbonated beverages, clear teas, apple juice) until 3 hours prior to surgery (4:30AM) with a maximum of 20 ounces. - No food from midnight until time of surgery and no smoking, or chewing tobacco (or any form of nicotine). No chewing gum, candy or mints. Take only the following medications with a SIP of water on the morning of surgery: ____HYDROCODONE NEEDED FOR PAIN DO NOT STOP ANY OF YOUR OTHER PRESCRIPTION MEDICATIONS PRIOR TO SURGERY EXCEPT THE FOLLOWING Hold all vitamins and supplements for 3 days per anesthesiologist. Medications to discontinue per physician ____HOLD XERALTO PER DR HERBERT Date to take last dose Please no make-up, nail somali, hairspray, perfume, deodorant, or body powder the day of surgery.? No jewelry (including any body piercings) or valuables the day of surgery, leave them at home.? Please take a shower or bath the night before, or the morning of, surgery with an antibacterial soap.? Wear comfortable, loose fitting clothing.? Children are encouraged to wear pajamas. - Jewelry must be removed prior to entering the operating room.? Rings and piercings that are not removed may be cut off. - The hospital will not accept responsibility for valuables.? - Please leave all valuables, including medications, at home the day of surgery. If you are going home after surgery, a licensed charter driver must drive you home.? - NO public transportation without another adult if you receive anesthesia. - We recommend that an adult stay with you for 24 hours following discharge. - We also recommend that you do not drive, make important decision, drink alcoholic beverages, or take any drugs that were not prescribed by your health care provider for at least 24 hours after your discharge time. Follow any additional instructions given to you from your surgeon. Telephone instructions given to ____PATIENT and asked if any additional questions and then verbalized understanding. Patient advised to call surgeon office or pre surgery nurse liaison [phone] if any additional questions.
--- NOTE | 2024-07-29 14:23 | WPDANESEPPF ---
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 Patient Data Age: 68 Gender: M Height: 1.7 m Weight: 98 kg Allergies Allergy/AdvReac Type Severity Reaction Status Date / Time niacin Allergy Mild HIVES Verified 07/30/24 06:57 fish oil AdvReac Mild Nausea Verified 07/30/24 06:57 Home Medications ?Medication ?Instructions ?Recorded ?Confirmed ?Type omeprazole 20 mg capsule,delayed 20 mg PO DAILY #90 caps 10/31/23 07/24/24 Rx release lisinopril 10 mg tablet 10 mg PO DAILY #90 tabs 12/09/23 07/24/24 Rx atorvastatin 10 mg tablet See Rx Instructions .Route 05/06/24 07/24/24 Rx .COMPLEX #90 tabs rivaroxaban 20 mg tablet (Xarelto) See Rx Instructions .Route 06/09/24 07/24/24 Rx .COMPLEX #90 tabs hydrocodone 7.5 mg-acetaminophen 1 tablet PO Q4H PRN pain #40 tabs 07/25/24 Rx 325 mg tablet Patient hx anesthesia problems: none Family hx anesthesia problems: none Results Review: All pre-operative results and documents have been reviewed as part of the pre-operative evaluation. [facility] Past Medical History Medical History Osteoarthritis of left knee CAD (coronary artery disease) Chronic deep vein thrombosis (DVT) Adenomatous colon polyp Osteoarthritis of both knees Cellulitis of right lower extremity Edema of right lower extremity Hypertensive heart disease without CHF FILIPE (obstructive sleep apnea) Prediabetes Surgical History Surgical History History of elbow surgery Lt History of hernia surgery Family History Family History Mother Cancer of blood vessel Father No problems noted. Mother Family history of blood dyscrasia Grandparent Family history of heart disease in male family member before age 55 Social History Social History Smoking packs per day: 1 Smoking cigarettes per day: 20.0 Years smoked: 19 Smoking pack-years: 19.00 Smoking status: Former smoker Tobacco type: cigarettes Second hand tobacco smoke exposure: No Smoking end date: 08/12/90 Alcohol intake: never Alcohol use details: occasionally Substance use: never Substance use type: does not use Do You Feel Safe in your Home?: Yes Lack of Transportation: No Lack of Food: Never True Current Housing: I Have Housing Concerned About Future Housing: No Difficulty Paying Gas/Electric Bills: No Difficulty Paying for Meds: No Currently Unemployed: No Education: High School Diploma/GED Difficulty w/ Childcare or Family Care: No Living arrangements: with family Additional living arrangements comments: Occupation/Education: occupation Gender identity (if verbalized by the patient): Male Sexual Orientation (if Verbalized by the Patient): Straight or Heterosexual Spiritual care concerns: No Anes - Eval Final PreProcedure Day of Procedure 07/29/24 14:23 Patient weight: obese Heart: regular rate and rhythm Lungs: clear to auscultation Airway: Mallampati scale class II Neurological: alert and oriented Last oral intake: >/= 8 hours ASA classification: III Emergent: no Anesthetic plan: proceed Anesthesia type and monitoring: general GIVS and standard monitoring Results Review: All pre-operative results and documents have been reviewed as part of the pre-operative evaluation. Informed Consent: The patient's anesthetic plan and its attendant risks and benefits were discussed with the patient/family/POA. Questions were solicited and answers provided to the satisfaction of the patient/family/POA.
[2024-07-30] VITALS (8 sets, daily range): BP systolic 118–137; BP diastolic 66–87; PULSE 60–89; RESP 12–20; TEMP 36.2–36.3; O2SAT 97–100; BMI 33.5
--- OUTSIDE RECORDS SUMMARY | 2024-07-30 01:06 | XMS_ITS | Clinical Summary ---
Author Organization [facility] [place] Address [address] [place] [address] Care Team Providers Care Meat Grinder Name Role Phone Arturo Burns MD Primary Care Provider [phone] Source Comments [facility],non-owned Affiliates and Associated Physician Practices is amultiple site organization consisting of ambulatory clinics and hospital sitesin [place], [place], [place] and [place]. This disclosure is being madepursuant to the Care Everywhere program and may not contain all information available regarding this patient. 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 Gender Identity Not on file Sexual Orientation [...] 1:46 AM CDT Height 170.2 cm (5' 7) 06/25/2017 1:46 AM CDT Body Mass Index [...] Billing Address Personal/Family [address] [place] [address] [employer] * Guarantor: PATT SCHNEIDER Account Type Relation to Patient Date of Phone Billing Address Personal/Family [address] [place] [address] * Guarantor: PATT SCHNEIDER Account Type Relation to Patient Date of Phone Billing Address Personal/Family [address] [place] [address] Advance Directives * Full Code (Latest Code Status on File) Date Activated Date Inactivated Comments 06/25/2017 5:41 PM 06/26/2017 12:49 PM Care Teams Meat Grinder Relationship Specialty Start Date End Date Arturo Burns MD [address] [place] [address] PCP - General Family Medicine 06/25/17
[2024-07-30] MEDS: KETOROLAC 15 MG/ML VIAL (*BKC) IV PUSH (06:40)
[2024-07-30] MEDS: LACTATED RINGERS 1,000 ML 30 ML IV CONT (06:40)
[2024-07-30] MEDS: ACETAMINOPHEN 500 MG TABLET 1000 MG PO (06:40)
--- NOTE | 2024-07-30 06:54 | WPDHPUPDATE1 ---
History and Physical Update Update Date/Time: 07/30/24 06:54 History and Physical has been reviewed, including an updated exam of the patient. There are NO changes in the patient's condition. Risks, benefits, and alternatives have been discussed and questions answered. Patient agrees to proceed with procedure.
--- NOTE | 2024-07-30 07:31 | W.PM.PROC2 ---
Procedure Note - Detailed Date of Procedure 07/30/24 Pre-op Diagnosis Arthrofibrosis of Total Left Knee Post-op Diagnosis Same Procedure Performed Manipulation left knee under anesthesia Surgeon Juan Prince MD Anesthesia General Indications Pain and Stiffness Description of Procedure Patient brought to operating room #8. A general anesthetic was administered. He LEFT knee was then gently manipulated into 120? of flexion and came out nearly straight. The bands were felt to tear during the manipulation. No fractures were appreciated. Patient left the operating room satisfactory condition. Of note is he has got some scabs on the front of his knee there are somewhat erythematous. Condition Stable Disposition PACU [facility] Billing Surgery - Charge Forward: Surgery Billing ([id number] Manipulation under Anesthesia)
[2024-07-30] MEDS: oxyCODONE HCL (*CRX) 5 MG TAB IR PO (08:30)
== END 2024-07-30 09:18 | disposition home or self-care (01) ==
PROVIDERS: PCP Family Medicine; Visit Provider Orthopaedic Surgery
PROC: (CPT 27570; principal; 2024-07-30 07:30)
DX: M76.892 Other specified enthesopathies of left lower limb, excluding foot (principal); M17.0 Bilateral primary osteoarthritis of knee; I25.10 Atherosclerotic heart disease of native coronary artery without angina pectoris; I11.9 Hypertensive heart disease without heart failure; G47.33 Obstructive sleep apnea (adult) (pediatric); R73.03 Prediabetes; E66.9 Obesity, unspecified; Z68.33 Body mass index [BMI] 33.0-33.9, adult; Z79.01 Long term (current) use of anticoagulants; Z79.891 Long term (current) use of opiate analgesic; Z98.890 Other specified postprocedural states; Z96.652 Presence of left artificial knee joint; Z87.891 Personal history of nicotine dependence; Z86.0100 Personal history of colon polyps, unspecified; Z86.718 Personal history of other venous thrombosis and embolism; Z80.8 Family history of malignant neoplasm of other organs or systems; Z82.49 Family history of ischemic heart disease and other diseases of the circulatory system
CPT/HCPCS: 27570; A9270; J1885; J2003; J2704; J3010; J7120

== ENCOUNTER 2024-08-17 09:07 | Emergency (ER) | payer OTHER, SELFPAY ==
--- NOTE | 2024-08-17 09:17 | ED.SKABFB ---
HPI - Skin/Abscess/Foreign Bdy General Chief complaint: Skin/Abscess/Foreign Body Stated complaint: Shingles Time Seen by Provider: 08/17/24 09:17 Source: patient Mode of arrival: ambulatory Limitations: no limitations History of Present Illness HPI narrative: 68-year-old male presented for complaint of a red rash to the right mid back for about 2 days. Endorses prior to the rash he had muscle soreness to the area. Denies drainage for itching. Has not applied anything to the rash. Patient is concerned for shingles. Has not had shingles or the vaccine. Denies changes to soap, detergent, lotion, or any other exposures. No one else in the house or any contacts with similar symptoms. Related Data Allergies Allergy/AdvReac Type Severity Reaction Status Date / Time niacin Allergy Mild HIVES Verified 08/14/24 07:14 fish oil AdvReac Mild Nausea Verified 08/14/24 07:14 Review of Systems Review of Systems: CONSTITUTIONAL: Denies body aches, fever, chills, or sweats. EYES: Denies visual changes, redness, or discharge. ENT: Denies rhinorrhea, congestion CARDIOVASCULAR: Denies chest pain, palpitations, or edema. RESPIRATORY: Denies cough or dyspnea. GASTROINTESTINAL: Denies abdominal pain, nausea, vomiting, or diarrhea. SKIN: reports rash to right back MUSCULOSKELETAL: Denies back pain, joint pain, or myalgia. NEUROLOGIC: Denies headache, numbness, tingling, or weakness. [facility] Past Medical History Medical History Osteoarthritis of left knee CAD (coronary artery disease) Chronic deep vein thrombosis (DVT) Adenomatous colon polyp Osteoarthritis of both knees Cellulitis of right lower extremity Edema of right lower extremity Hypertensive heart disease without CHF FILIPE (obstructive sleep apnea) Prediabetes Surgical History Surgical History History of elbow surgery Lt History of hernia surgery Family History Family History Mother Cancer of blood vessel Father No problems noted. Mother Family history of blood dyscrasia Grandparent Family history of heart disease in male family member before age 55 Social History Social History Smoking packs per day: 1 Smoking cigarettes per day: 20.0 Years smoked: 19 Smoking pack-years: 19.00 Smoking status: Former smoker Tobacco type: cigarettes Second hand tobacco smoke exposure: No Smoking end date: 08/12/90 Alcohol intake: never Alcohol use details: occasionally Substance use: never Substance use type: does not use Do You Feel Safe in your Home?: Yes Lack of Transportation: No Lack of Food: Never True Current Housing: I Have Housing Concerned About Future Housing: No Difficulty Paying Gas/Electric Bills: No Difficulty Paying for Meds: No Currently Unemployed: No Education: High School Diploma/GED Difficulty w/ Childcare or Family Care: No Living arrangements: with family Additional living arrangements comments: Occupation/Education: occupation Gender identity (if verbalized by the patient): Male Sexual Orientation (if Verbalized by the Patient): Straight or Heterosexual Spiritual care concerns: No Comments At time of signature, I have reviewed and agree with nursing past medical, surgical, social and family history unless otherwise noted. Please see nursing chart for further information. There is no relevant family history pertinent to the presenting complaint Exam Narrative: GENERAL: Well-appearing HEAD: Normocephalic, atraumatic. EYES: conjunctivae clear, and EOMI. ENT: Mucous membranes moist. Oropharynx without edema, erythema or lesions. NECK: Supple. No lymphadenopathy CHEST: Clear to auscultation. HEART: Regular rate and rhythm. SKIN: Warm, dry. Vesicular lesions on an erythematous base c/w zoster noted to the right mid back consistent with following dermatomes T8-9. No active drainage. NEURO: Alert and oriented x3. Course Course Emergency Course: Patient is aware of diagnosis, understands and agrees to treatment plan. Anticipatory guidance given. Patient agrees to follow-up as directed and is aware of reasons to seek care at the emergency department. Portions of this record may have been created with voice recognition software Level of Care: Express Care Visit Vital Signs Vital signs: Reviewed MDM - Skin/Abscess/Foreign Bdy MDM Narrative Medical decision making narrative: Discussed physical exam findings Consistent with zoster, Reviewed prescriptions.. Advised supportive measures and signs/symptoms to go to the ER. Pt is appropriate for outpt treatment and f/u. Differential Diagnosis Differential diagnosis: Likely abscess of skin or subcutaneous tissue, viral exanthem, dermatophytosis, urticaria, herpes zoster, cellulitis, eczema, insect bites, impetigo and contact dermatitis Discharge Plan Discharge Clinical Impression: Herpes zoster Patient Disposition: Home Condition: Stable Instructions: Antibiotic Form, Shingles (ED) Additional Instructions: Take medication as directed Keep the lesions covered until they are fully crusted over - you are contagious until they are dried Avoid contact with women or people who have not had chickenpox vaccination. Tylenol 1000mg every 8 hours as needed Lidocaine cream as directed Follow up with your primary care provider next week. Go to the ER for worsening symptoms or concerns. Patient Language: Canadian Prescriptions: New valacyclovir [Valtrex] 1 gram tablet 1,000 mg PO Q8H 7 Days Qty: 21 0RF lidocaine HCl 3 % cream 1 applic topical TID PRN (Reason: pain) Qty: 28.3 0RF No Action hydrocodone-acetaminophen 7.5-325 mg tablet 1 tablet PO Q4H PRN (Reason: pain) Qty: 40 0RF lisinopril 10 mg tablet 10 mg PO DAILY Qty: 90 2RF Patient Comments: HS atorvastatin 10 mg tablet See Rx Instructions .ROUTE .COMPLEX Qty: 90 2RF Dose Instruction: TAKE 1 TABLET BY MOUTH EVERY DAY Patient Comments: HS Rx Instructions: TAKE 1 TABLET BY MOUTH EVERY DAY Xarelto 20 mg tablet See Rx Instructions .ROUTE .COMPLEX Qty: 90 3RF Dose Instruction: TAKE 1 TABLET BY MOUTH EVERY DAY Rx Instructions: TAKE 1 TABLET BY MOUTH EVERY DAY omeprazole 20 mg capsule,delayed release(DR/EC) 20 mg PO DAILY Qty: 90 2RF Patient Comments: HS Follow-up/Referrals: Arturo Burns MD [Primary Care Provider] - Time of Disposition: 09:34
[2024-08-17 09:19] VITALS: BP 112/83; PULSE 82; RESP 16; TEMP 36.5; O2SAT 100
== END 2024-08-17 09:37 | disposition home or self-care (01) ==
PROVIDERS: Emergency Provider Nurse Practitioner Family; PCP Family Medicine
DX: B02.9 Zoster without complications (principal); I25.10 Atherosclerotic heart disease of native coronary artery without angina pectoris; I11.9 Hypertensive heart disease without heart failure; R73.03 Prediabetes; M17.0 Bilateral primary osteoarthritis of knee; Z86.718 Personal history of other venous thrombosis and embolism; Z87.891 Personal history of nicotine dependence
CPT/HCPCS: 99213; G0463

== ENCOUNTER 2024-09-02 10:00 | Outpatient (RCR) | payer OTHER, SELFPAY ==
--- NOTE | 2024-06-24 08:03 | WPDANESPN ---
Anes - Prog Note Post-Op Date/Time: 06/24/24 08:03 Cardiovascular status: normal Respiratory status: normal Airway patency: baseline Mental status: baseline Pain Score (VAS): 3 Patient Feedback: Patient satisfied with anesthetic care.
--- NOTE | 2024-07-01 09:27 | OPREHPOC ---
Outpatient Therapy Plan of Care This is a Multidisciplinary Plan of Care that may contain components documented by all disciplines (PT, OT, and ST.) PT Problem 1 PT Problem #1 Knowledge Deficit PT Goal 1 Goal / Goal Update [place] with HEP PT Goal 2 Goal / Goal Update Report no pain greater than 2/10 PT Problem 2 PT Problem #2 Impaired Gait PT Goal 1 Goal / Goal Update Ambulate independent of AD Target Visit 10 PT Problem 3 PT Problem #3 Impaired Range of Motion PT Goal 1 Goal / Goal Update 1. Achieve terminal knee extension 2. Improve left knee flexion ROM to 120 degrees Target Visit 10 PT Problem 4 PT Problem #4 Impaired Strength PT Goal 1 Goal / Goal Update Improve gross left knee strength to 5/5 Target Visit 10
--- NOTE | 2024-07-01 09:27 | PTOPEVAL1 ---
Assessment and note entered by Gilmer Hadley, PT Evaluation Information Assessment Status Evaluation Diagnosis Presence of left Total Knee Arthroplasty ICD-10 Condition Codes (PT) Pain in left knee M25.562 Onset 06/23/24 Subjective Information Reports that overall he is sleeping fairly well. He has been already trying to wean himself off of pain medication but is taking Tylenol regularly. He does not have any stairs in his home that he has to use. Has a ramp installed into his home to get in and out. His initial bandage was bleeding but it has not since. Denies distal pain at this time. Reported Pain Level Pain Score 5: Self Report Assessment PT Clinical Summary Patient presents with swelling , strength, gait and ROM deficits following total knee arthroplasty . Will benefit form skilled therapy to address these deficits and move towards improved functional mobility through objective improvement. Patient is a little behind schedule on knee ROM so exercises were upgraded to address this. Plan of Care Interventions Gait Training,Manual Therapy,Neuro Re-education, Therapeutic Activities,Therapeutic Exercise PT Services Indicated Yes Treatment Frequency and 2x/week for 10 visits Duration These treatments will address the objective and functional deficits as defined above. The patient will be advanced safely and appropriately in order for the patient to progress towards his/her prior level of function. Additional exercises will be introduced and as well as a comprehensive home exercise program upon discharge, if needed, ?to ensure carryover of functional gains achieved in the clinic. This treatment plan has been reviewed and agreement upon by the patient.
--- NOTE | 2024-07-14 11:34 | PCPTNOTE ---
Patient called to cancel appointment this date as he realized he had the wrong appointment time/date in his head. Rescheduled appointment to tomorrow.
--- NOTE | 2024-07-24 09:56 | PCPTNOTE ---
Patient called to cancel therapy this date due to having a .
--- NOTE | 2024-08-05 13:02 | OPREHPOC ---
Outpatient Therapy Plan of Care This is a Multidisciplinary Plan of Care that may contain components documented by all disciplines (PT, OT, and ST.) PT Problem 1 PT Problem #1 Knowledge Deficit PT Goal 1 Goal / Goal Update Rapides with HEP Progress Met PT Goal 2 Goal / Goal Update Report no pain greater than 2/10 Progress Partially Met PT Problem 2 PT Problem #2 Impaired Gait PT Goal 1 Goal / Goal Update Ambulate independent of AD Target Visit 10 Progress Met PT Problem 3 PT Problem #3 Impaired Range of Motion PT Goal 1 Goal / Goal Update 1. Achieve terminal knee extension 2. Improve left knee flexion ROM to 120 degrees 08/05/24: Progressing post manipulation Target Visit 18 Progress Partially Met PT Problem 4 PT Problem #4 Impaired Strength PT Goal 1 Goal / Goal Update Improve gross left knee strength to 5/5 08/05/24: Progressing post manipulation Target Visit 18 Progress Partially Met
--- NOTE | 2024-08-05 13:02 | PTOPPROG ---
Assessment and note entered by Gilmer Hadley, PT Evaluation Information Assessment Status Re-evaluation Diagnosis Presence of left Total Knee Arthroplasty ICD-10 Condition Codes (PT) Pain in left knee M25.562 Onset 06/23/24 Subjective Information Reports that overall he is sleeping fairly well. He has been already trying to wean himself off of pain medication but is taking Tylenol regularly. He does not have any stairs in his home that he has to use. Has a ramp installed into his home to get in and out. His initial bandage was bleeding but it has not since. Denies distal pain at this time. Assessment PT Clinical Summary Patient presents to therapy post knee manipulation . Patient shows lack of terminal extension and lack of full functional knee flexion. He will benefit from continued therapy emphasizing knee ROM bi-directional to maximize knee function. Will strengthen as needed. Emphasizing aggressive knee motion as tolerated. Plan of Care Interventions Gait Training,Manual Therapy,Neuro Re-education, Therapeutic Activities,Therapeutic Exercise PT Services Indicated Yes Treatment Frequency and 2x/week for 8 visits Duration These treatments will address the objective and functional deficits as defined above. The patient will be advanced safely and appropriately in order for the patient to progress towards his/her prior level of function. Additional exercises will be introduced and as well as a comprehensive home exercise program upon discharge, if needed, ?to ensure carryover of functional gains achieved in the clinic. This treatment plan has been reviewed and agreement upon by the patient.
--- NOTE | 2024-08-05 13:04 | PTOPPROG ---
Assessment and note entered by Gilmer Hadley, PT Evaluation Information Assessment Status Re-evaluation Diagnosis Presence of left Total Knee Arthroplasty ICD-10 Condition Codes (PT) Pain in left knee M25.562 Onset 06/23/24 Subjective Information Reports that manipulation was much quicker than he expected. MD took pictures of him at 120 degrees of knee flexion. He is having trouble re-obtaining that on his own. States that he continues to have some swelling and looking forward to getting into the pool to work on it more. Mild pain at rest. Remains focused on ROM goals for long time. Scheduled currently to return to work on 08/18/24. Assessment PT Clinical Summary Patient presents to therapy post knee manipulation . Patient shows lack of terminal extension and lack of full functional knee flexion. He will benefit from continued therapy emphasizing knee ROM bi-directional to maximize knee function. Will strengthen as needed. Emphasizing aggressive knee motion as tolerated. Plan of Care Interventions Gait Training,Manual Therapy,Neuro Re-education, Therapeutic Activities,Therapeutic Exercise PT Services Indicated Yes Treatment Frequency and 2x/week for 8 visits Duration These treatments will address the objective and functional deficits as defined above. The patient will be advanced safely and appropriately in order for the patient to progress towards his/her prior level of function. Additional exercises will be introduced and as well as a comprehensive home exercise program upon discharge, if needed, ?to ensure carryover of functional gains achieved in the clinic. This treatment plan has been reviewed and agreement upon by the patient.
--- NOTE | 2024-08-14 15:09 | PCPTNOTE ---
Patient arrived to therapy complaining of not feeling well. Patient then left after 5 minutes of arrival due to stating he felt sick to his stomach. Patient was marked as a cancel for this date.
--- NOTE | 2024-09-02 10:38 | OPREHPOC ---
Outpatient Therapy Plan of Care This is a Multidisciplinary Plan of Care that may contain components documented by all disciplines (PT, OT, and ST.) PT Problem 1 PT Problem #1 Knowledge Deficit PT Goal 1 Goal / Goal Update [place] with HEP Progress Met PT Goal 2 Goal / Goal Update Report no pain greater than 2/10 Progress Met PT Problem 2 PT Problem #2 Impaired Gait PT Goal 1 Goal / Goal Update Ambulate independent of AD Target Visit 10 Progress Met PT Problem 3 PT Problem #3 Impaired Range of Motion PT Goal 1 Goal / Goal Update 1. Achieve terminal knee extension 2. Improve left knee flexion ROM to 120 degrees 09/02/24: Achieved 110 degrees Target Visit 18 Progress Partially Met PT Problem 4 PT Problem #4 Impaired Strength PT Goal 1 Goal / Goal Update Improve gross left knee strength to 5/5 Target Visit 18 Progress Partially Met
--- NOTE | 2024-09-02 10:39 | PTOPDC ---
Assessment and note entered by Gilmer Hadley, PT Evaluation Information Assessment Status Discharge Diagnosis Presence of left Total Knee Arthroplasty ICD-10 Condition Codes (PT) Pain in left knee M25.562 Onset 06/23/24 Subjective Information Reports that overall he feels he is doing well. He has been doing a lot of work in the pool which seems to help. Feels he is striding better with longer more fluid steps. Reported Pain Level Pain Score 0: Self Report Assessment PT Clinical Summary Patient has made legitimate progress in knee ROM to the point that he feels he is at a functional level. We were hoping to achieve 120 degrees but 110 was quite the success given his starting point . He still demonstrates some knee edema and this would indicate that there is still progress to be made. Patient will continue compliance with HEP. Plan of Care PT Services Indicated Yes
== END 2024-09-02 10:49 | disposition home or self-care (01) ==
LOC: ANHGOSHPT 10:00
PROVIDERS: PCP Family Medicine; Visit Provider Orthopaedic Surgery
DX: Z47.1 Aftercare following joint replacement surgery (principal); Z96.652 Presence of left artificial knee joint
CPT/HCPCS: 97014; 97016; 97110; 97140; 97161; 97530; G0283

== ENCOUNTER 2024-11-17 13:16 | Outpatient (CLI) | payer OTHER, SELFPAY ==
--- OUTSIDE RECORDS SUMMARY | 2024-11-17 14:12 | XMS_ITS | Clinical Summary ---
Author Organization [facility] Address [address] [facility] [place] [address] Care Team Providers Care Linking Machine Operator Name Role Phone Arturo Burns MD Primary Care Provider [phone] Source Comments [facility],non-owned Affiliates and Associated Physician Practices is amultiple site organization consisting of ambulatory clinics and hospital sitesin [place], [place], [place] and [place]. This disclosure is being madepursuant to the Care Everywhere program and may not contain all information available regarding this patient. 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 Gender Identity Not on file Sexual Orientation [...] years 1-dose series) 2013 AAA SCREENING 2018 DEPRESSION SCREENING 02/13/2024 COVID-19 VACCINE (1 - 2023-2 5 season) 2024 INFLUENZA VACCINE (#1) 2024 HEPATITIS B VACCINE Aged Out No [...] Billing Address Personal/Family [address] [place] [address] [employer] * Guarantor: PATT SCHNEIDER Account Type Relation to Patient Date of Phone Billing Address Personal/Family [address] [place] [address] * Guarantor: PATT SCHNEIDER Account Type Relation to Patient Date of Phone Billing Address Personal/Family [address] [place] [address] Advance Directives * Full Code (Latest Code Status on File) Date Activated Date Inactivated Comments 06/25/2017 5:41 PM 06/26/2017 12:49 PM Care Teams Linking Machine Operator Relationship Specialty Start Date End Date Arturo Burns MD [address] [place] [address] PCP - General Family Medicine 06/25/17
--- OUTSIDE RECORDS SUMMARY | 2024-11-17 14:12 | XMS_ITS | Clinical Summary ---
Author Organization [facility] Address [address] [place] [address] Care Team Providers Care Broomcorn Sorter Name Role Phone Arturo Burns MD Primary Care Provider Allergies No known active allergies Encounters Date Type Department Care Team Description 11/11/2024 9:04 AM CDT - 11/11/2024 11:59 PM CDT Hospital Encounter [facility] [address] [place] [address] Loss of weight Discharge Disposition: Discharge to home or self care 11/11/2024 8:46 AM CDT - 11/11/2024 11:59 PM CDT [facility] [address] [place] [address] Abnormal weight loss Discharge Disposition: Discharge to home or self care 10/21/2024 Orders Only [facility] [place]note 2][address] [place] [address] Yordan Urrutia PA from Last 3 Months Family History Medical History Relation Name Comments Other Brother 2 Alive and well; Other Father 2 Unknown; Cause of : Unknown Other Sister 2 Alive and well; Relation Name Status Comments Brother 1 Alive Brother 2 Father 1 (Age 76) Father 2 Sister 1 Alive Sister 2 Social History Tobacco Use Types Packs/Day Years Used Date Smoking Tobacco: Never Alcohol Use Standard Drinks/Week Comments No 0 (1 standard drink = 0.6 oz pur e alcohol) Sex and Gender Information Value Date Recorded Sex Assigned at Not on file 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 Gender Identity Not on file Sexual Orientation Not on file Obstetrics History Last Filed Vital Signs Vital Sign Reading Time Taken Comments Blood Pressure 110/82 10/09/2014 9:58 AM CDT Pulse 70 10/09/2014 9:58 AM CDT Temperature - - Respiratory Rate - - Oxygen Saturation - - Inhaled Oxygen Concentration - - Weight 108 kg (238 lb) 10/09/2014 9:58 AM CDT Height 172.7 cm (5' 8) 10/09/2014 9:58 AM CDT Body Mass Index 36.19 10/09/2014 9:58 AM CDT Plan of Treatment Health Maintenance Due Date Last Done Comments Colon Cancer Screening-Colonoscopy 1955 Depression Screening 1955 Fall Risk Assessment 1955 Hepatitis C Screening 1955 Hepatitis B Screening 09/24/1971 Zoster Vaccine (1 of 2) 09/24/2003 Well Visit 65+ 2018 Pneumococcal vaccine 65+ (2 of 2 - PCV20 or PCV21) 11/28/2021 11/28/2020 Covid-19 Vaccine (6 - 2024-2 6 season) 2024 12/17/2022, 12/10/2021, 12/17/2020, Additional history exists Influenza Vaccine (#1) 2024 , 12/17/2022, 01/07/2022, Additional history exists DTaP/Tdap/Td Vaccine (2 - Td or Tdap) 11/06/2025 11/07/2015 Abdominal Aortic Aneurysm (A AA) Screen Completed 11/11/2024 Procedures Procedure Name Priority Date/Time Associated Diagnosis Comments XR CHEST PA LATERAL 2 VIEWS Schedule Routine, Read Routine (OP Routine) 11/11/2024 9:13 AM CDT Loss of weight CT ABDOMEN PELVIS W CONTRAST Schedule Routine, Read Routine (OP Routine) 11/11/2024 8:57 AM CDT Abnormal weight loss from Last 3 Months Results * XR Chest PA Lateral 2 Views (11/11/2024 9:13 AM CDT) Anatomical Region Laterality Modality Body, Chest N/A Computed Radiogr aphy 11/13/2024 3:51 PM CDT Narrative 11/13/2024 3:51 PM CDT EXAM DESCRIPTION: XR CHEST PA LATERAL 2 VIEWS REASON FOR STUDY: weight loss Weight loss 30 lbs since having knee replacement done 06/23/24 TECHNIQUE: Frontal and lateral radiographic view(s) of the chest. COMPARISON: None FINDINGS: LUNGS: No focal opacity, pleural effusion, or pneumothorax. HEART/MEDIASTINUM: Cardiac silhouette normal in size. Mediastinal and hilar contours appear normal. LINES/TUBES: None. BONES: No acute osseous abnormality. IMPRESSION: No acute cardiopulmonary abnormality. THIS IS AN ELECTRONICALLY VERIFIED FINAL REPORT 11/13/2024 3:51 PM - Electronically signed by Troy Ayoub M.D. AM T: Report ID: [id number] Reading Location: [id number] Procedure Note Troy Ayoub MD - 11/13/2024 EXAM DESCRIPTION: XR CHEST PA LATERAL 2 VIEWS REASON FOR STUDY: weight loss Weight loss 30 lbs since having knee replacement done 06/23/24 TECHNIQUE: Frontal and lateral radiographic view(s) of the chest. COMPARISON: None FINDINGS: LUNGS: No focal opacity, pleural effusion, or pneumothorax. HEART/MEDIASTINUM: Cardiac silhouette normal in size. Mediastinal andhilar contours appear normal. LINES/TUBES: None. BONES: No acute osseous abnormality. IMPRESSION: No acute cardiopulmonary abnormality. THIS IS AN ELECTRONICALLY VERIFIED FINAL REPORT 11/13/2024 3:51 PM - Electronically signed by Troy Ayoub M.D. AM T: Report ID: [id number] Reading Location: [id number] [facility] XR PROCEDURES Final R esult * CT Abdomen Pelvis W Contrast (11/11/2024 8:57 AM CDT) Anatomical Region Laterality Modality Body N/A Computed Tomogra phy 11/11/2024 1:56 PM CDT Narrative 11/11/2024 2:10 PM CDT EXAM DESCRIPTION: CT ABDOMEN PELVIS W CONTRAST REASON FOR STUDY: ABNORMAL WEIGHT LOSS 30lb weight loss since June 2024 TECHNIQUE: CT scan of the abdomen and pelvis performed with intravenous and without oral contrast using helical scanning technique with dynamic intravenous contrast injection. Reconstructed coronal and sagittal MPR images reviewed. All images stored on PACS. Automated exposure control was used as a dose optimization technique for this examination. CONTRAST TYPE/DOSE: 95mL of IOVERSOL 350 MG IODINE/ML INTRAVENOUS SYRINGE injected COMPARISON: None available FINDINGS: LOWER CHEST: Mild scattered bilateral pulmonary parenchymal scarring and subsegmental atelectasis. There is a right lower lobe noncalcified pulmonary nodule measuring 4 mm at slice position 9. No pleural effusion. Borderline cardiomegaly. Coronary artery atherosclerotic calcifications are present. Imaged esophagus is normal. There is a right lateral chest wall lipoma measuring 9.5 by 7.6 by 4.0 cm. LIVER: Normal size. Subcentimeter hypoattenuating hepatic lesions are too small to characterize. For reference, there is a 3 mm hypoattenuating left hepatic lobe lesion at slice position 28. Hepatic and portal veins are patent. GALLBLADDER: Cholelithiasis. BILE DUCTS: No intrahepatic or extrahepatic ductal dilatation. SPLEEN: Normal size. No focal lesions. A splenule is present. PANCREAS: No identified cystic or solid masses. No significant calcifications. No adjacent inflammation or peripancreatic fluid collections. Pancreatic duct not dilated. ADRENALS: Indeterminate left adrenal gland nodule measures 22 mm. Right adrenal gland is normal. KIDNEYS/URINARY TRACT: Subcentimeter bilateral renal hypoattenuating lesions are too small to characterize. Moderate chronic right renal atrophy.. There is a nonobstructive 3 mm calculus in the lower pole of the right kidney.. No hydronephrosis or hydroureter. Symmetric enhancement. There is mild circumferential thickening of the urinary bladder wall. GI: The stomach is normal. There is no small bowel or colonic obstruction, inflammation or perforation. There is colonic diverticulosis. The appendix is normal. PERITONEUM: No ascites or free air. Subtle geographic hyperattenuation of the mesenteric fat in the left upper abdomen with associated prominent but nonenlarged mesenteric lymph nodes which can be seen with mesenteric panniculitis or sequela of prior mesenteric panniculitis. RETROPERITONEUM: No mass or adenopathy. REPRODUCTIVE: Mild enlargement and heterogeneous enhancement of the prostate gland. VASCULATURE: Focal ectasia of infrarenal abdominal aorta measuring up to 26 mm in diameter.. The abdominal aorta and its branches are patent with atherosclerotic calcifications. MUSCULOSKELETAL: No acute fractures or aggressive bone lesions. There is a lipomatous lesion, probably a lipoma, along the left internal oblique muscle along the lateral left lower quadrant abdominal wall measuring 35 mm. IMPRESSION: 1. Mild enlargement and heterogeneous enhancement of the prostate gland. Clinical correlation is recommended. 2. Mild circumferential thickening of the urinary bladder wall which could reflect sequela of chronic bladder outlet obstruction in the setting of an enlarged prostate gland. Superimposed cystitis remains a possibility in the appropriate clinical setting. 3. Indeterminate left adrenal gland nodule measuring 22 mm. Comparison to prior imaging would be helpful, if available. If clinically indicated, dedicated adrenal protocol MRI could be considered for further evaluation. 4. Subtle geographic hyperattenuation of the mesenteric fat in the left upper abdomen with associated prominent but nonenlarged mesenteric lymph nodes which can be seen with mesenteric panniculitis or sequela of prior mesenteric panniculitis. 5. Noncalcified right lower lobe pulmonary nodule measuring 4 mm. According to updated Fleischner Society guidelines, if the patient is high risk for development of lung cancer, follow-up chest CT in 12 months could be considered. Reference: Radiographics. 2017-Nov;38(5):3033-9291. THIS IS AN ELECTRONICALLY VERIFIED FINAL REPORT 11/11/2024 2:10 PM - Electronically signed by Stefania Dee M.D. AT T: Report ID: [id number] Reading Location: [id number] Procedure Note Stefania Dee MD - 11/11/2024 EXAM DESCRIPTION: CT ABDOMEN PELVIS W CONTRAST REASON FOR STUDY: ABNORMAL WEIGHT LOSS 30lb weight loss since June 2024 TECHNIQUE: CT scan of the abdomen and pelvis performed with intravenousand without oral contrast using helical scanning technique with dynamic intravenous contrast injection. Reconstructed coronal and sagittal MPRimages reviewed. All images stored on PACS. Automated exposure control was usedas a dose optimization technique for this examination. CONTRAST TYPE/DOSE: 95mL of IOVERSOL 350 MG IODINE/ML INTRAVENOUSSYRINGE injected COMPARISON: None available FINDINGS: LOWER CHEST: Mild scattered bilateral pulmonary parenchymal scarring and subsegmental atelectasis. There is a right lower lobe noncalcified pulmonary nodule measuring 4 mm at slice position 9. Nopleural effusion. Borderline cardiomegaly. Coronary artery atherosclerotic calcifications are present. Imaged esophagus is normal. There is a right lateral chest wall lipoma measuring 9.5 by 7.6 by 4.0 cm. LIVER: Normal size. Subcentimeter hypoattenuating hepatic lesions aretoo small to characterize. For reference, there is a 3 mm hypoattenuatingleft hepatic lobe lesion at slice position 28. Hepatic and portal veins are patent. GALLBLADDER: Cholelithiasis. BILE DUCTS: No intrahepatic or extrahepatic ductal dilatation. SPLEEN: Normal size. No focal lesions. A splenule is present. PANCREAS: No identified cystic or solid masses. No significant calcifications. No adjacent inflammation or peripancreatic fluidcollections. Pancreatic duct not dilated. ADRENALS: Indeterminate left adrenal gland nodule measures 22 mm. Right adrenal gland is normal. KIDNEYS/URINARY TRACT: Subcentimeter bilateral renal hypoattenuatinglesions are too small to characterize. Moderate chronic right renal atrophy..There is a nonobstructive 3 mm calculus in the lower pole of the right kidney..No hydronephrosis or hydroureter. Symmetric enhancement. There is mild circumferential thickening of the urinary bladder wall. GI: The stomach is normal. There is no small bowel or colonicobstruction, inflammation or perforation. There is colonic diverticulosis. Theappendix is normal. PERITONEUM: No ascites or free air. Subtle geographic hyperattenuationof the mesenteric fat in the left upper abdomen with associated prominent but nonenlarged mesenteric lymph nodes which can be seen with mesenteric panniculitis or sequela of prior mesenteric panniculitis. RETROPERITONEUM: No mass or adenopathy. REPRODUCTIVE: Mild enlargement and heterogeneous enhancement of theprostate gland. VASCULATURE: Focal ectasia of infrarenal abdominal aorta measuring up to26 mm in diameter.. The abdominal aorta and its branches are patent with atherosclerotic calcifications. MUSCULOSKELETAL: No acute fractures or aggressive bone lesions. There is a lipomatous lesion, probably a lipoma, along the left internal oblique muscle along the lateral left lower quadrant abdominal wallmeasuring 35 mm. IMPRESSION: 1. Mild enlargement and heterogeneous enhancement of theprostate gland. Clinical correlation is recommended. 2. Mild circumferential thickening of the urinary bladder wall whichcould reflect sequela of chronic bladder outlet obstruction in the setting of an enlarged prostate gland. Superimposed cystitis remains a possibility inthe appropriate clinical setting. 3. Indeterminate left adrenal gland nodule measuring 22 mm. Comparisonto prior imaging would be helpful, if available. If clinically indicated, dedicated adrenal protocol MRI could be considered for further evaluation. 4. Subtle geographic hyperattenuation of the mesenteric fat in the leftupper abdomen with associated prominent but nonenlarged mesenteric lymph nodeswhich can be seen with mesenteric panniculitis or sequela of prior mesenteric panniculitis. 5. Noncalcified right lower lobe pulmonary nodule measuring 4 mm.According to updated Fleischner Society guidelines, if the patient is high risk for development of lung cancer, follow-up chest CT in 12 months could be considered. Reference: Radiographics. 2018 Oct-Nov;38(5):0724-9609. THIS IS AN ELECTRONICALLY VERIFIED FINAL REPORT 11/11/2024 2:10 PM - Electronically signed by Stefania Dee M.D. AT T: Report ID: [id number] Reading Location: [id number] [facility] CT PROCEDURES Final R esult from Last [address] [place] [address] Care Teams Broomcorn Sorter Relationship Specialty Start Date End Date Arturo Burns MD [address] [facility] [address] [place] [address] PCP - General 08/26/14
== END 2024-11-17 13:17 | disposition home or self-care (01) ==
PROVIDERS: PCP Family Medicine; Visit Provider Otolaryngology
DX: H90.3 Sensorineural hearing loss, bilateral (principal); H93.8X3 Other specified disorders of ear, bilateral
CPT/HCPCS: 92557; 92567

== ENCOUNTER 2024-11-19 12:06 | Outpatient (CLI) | payer OTHER, SELFPAY ==
--- NOTE | ~2024-11-19 | XR_ITS ---
EXAMINATION: XR wrist RT min 3V, 11/19/2024 12:26 CDT HISTORY: ANTERIOR RT WRIST PAIN THAT GOES INTO HAND COMPARISON: No comparisons available. Findings: Remote fractures of the distal radius and styloid process. Moderate to severe degenerative changes with narrowing of the joint spaces and osteophytosis. Soft tissue swelling. Impression: No acute fracture or malalignment. Reviewed, dictated and finalized at location P. Impression: No acute fracture or malalignment.
== END 2024-11-19 12:07 | disposition home or self-care (01) ==
LOC: MICIMG 12:07
PROVIDERS: PCP Family Medicine; Visit Provider Physician Assistant Medical
DX: M25.531 Pain in right wrist (principal)
CPT/HCPCS: 73110